=== PATIENT | female | born 1995 | race Hispanic/Latino ===

== ENCOUNTER 2018-07-12 17:24 | Emergency (ER) | payer SELFPAY ==
[2018-07-12 19:37] LABS: Urine Bacteria <20 /HPF (<20); Urine Culture Reflex Order NOT NEEDED; Urine RBC <5 /HPF (NONE SEEN)
--- NOTE | 2018-07-12 19:48 | RAD REPORT ---
EXAM DESCRIPTION: CT - Stone Protocol - 07/12/2018 7:35 pm CLINICAL HISTORY: Abdominal pain. Nausea COMPARISON: 2017 TECHNIQUE: Computed axial tomography of the abdomen pelvis was obtained without oral or IV contrast. Lack of IV and oral contrast limits evaluation of solid organs, bowel, and vessels. Coronal reformat dominguez images were obtained and reviewed. All CT scans are performed using dose optimization technique as appropriate and may include automated exposure control or mA/KV adjustment according to patient size. FINDINGS: A renal calculus is not seen. An ureteral calculus is not noted. A bladder calculus is not present. The liver, spleen, pancreas and adrenals appear grossly normal There is no evidence of diverticulitis. The appendix appears normal Several calcified lymph nodes are present. IMPRESSION: Negative for a genitourinary calculus
[2018-07-12] MEDS ORDERED: KETOROLAC 30 MG/ML INJ ONE (21:00)
[2018-07-12 21:42] LABS: Urine Blood TRACE (NEG); Urine Glucose NEGATIVE (NEG); Urine Protein NEGATIVE (NEG)
--- NOTE | 2018-07-12 21:50 | EDPHYS ---
Physician Documentation [facility] Name: Mago Damico Age: 23 yrs Sex: Female : 1995 Arrival Date: 07/12/2018 Time: 17:29 Bed 23 Private MD: KENISHA FLETCHER ED Physician Will Phoenix HPI: 07/12 19:23 This 23 yrs old Female presents to ER via Ambulatory with complaints of snw Abdominal Pain. 19:23 The patient presents with abdominal pain right lower quadrant. Onset: The snw symptoms/episode began/occurred gradually, 1 week(s) ago, and became persistent. The symptoms do not radiate. Associated signs and symptoms: Pertinent positives: dizziness. The symptoms are described as constant, crampy. Severity of pain: At its worst the pain was moderate severe. The patient has experienced similar episodes in the past. The patient has not recently seen a physician. 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 - Social history:: Smoking status: Patient uses tobacco products, denies chronic smoking, but will smoke occasionally. - Ebola Screening: : No symptoms or risks identified at this time. ROS: 19:22 Constitutional: Negative for fever, chills, and weight loss, Eyes: Negative for injury, snw pain, redness, and discharge, ENT: Negative for injury, pain, and discharge, Neck: Negative for injury, pain, and swelling, Cardiovascular: Negative for chest pain, palpitations, and edema, Respiratory: Negative for shortness of breath, cough, wheezing, and pleuritic chest pain, Back: Negative for injury and pain, : Negative for injury, bleeding, discharge, and swelling, MS/Extremity: Negative for injury and deformity, Skin: Negative for injury, rash, and discoloration, Neuro: Negative for headache, weakness, numbness, tingling, and seizure. 19:22 Abdomen/GI: Positive for abdominal pain, abdominal cramps, of the suprapubic area and right lower quadrant, pain is so severe pt states she becomes dizzy and has to lie in a position with a heating pad. Exam: 19:21 Constitutional: This is a well developed, well nourished patient who is awake, alert, snw and in no acute distress. Head/Face: Normocephalic, atraumatic. Eyes: Pupils equal round and reactive to light, extra-ocular motions intact. Lids and lashes normal. Conjunctiva and sclera are non-icteric and not injected. Cornea within normal limits. Periorbital areas with no swelling, redness, or edema. ENT: Nares patent. No nasal discharge, no septal abnormalities noted. Tympanic membranes are normal and external auditory canals are clear. Oropharynx with no redness, swelling, or masses, exudates, or evidence of obstruction, uvula midline. Mucous membranes moist. Neck: Trachea midline, no thyromegaly or masses palpated, and no cervical lymphadenopathy. Supple, full range of motion without nuchal rigidity, or vertebral point tenderness. No Meningismus. Chest/axilla: Normal chest wall appearance and motion. Nontender with no deformity. No lesions are appreciated. Cardiovascular: Regular rate and rhythm with a normal S1 and S2. No gallops, murmurs, or rubs. Normal PMI, no JVD. No pulse deficits. Respiratory: Lungs have equal breath sounds bilaterally, clear to auscultation and percussion. No rales, rhonchi or wheezes noted. No increased work of breathing, no retractions or nasal flaring. Abdomen/GI: Soft, tender, with normal bowel sounds. No distension or tympany. Minimal guarding no rebound right lower quad. Back: No spinal tenderness. No costovertebral tenderness. Full range of motion. Skin: Warm, dry with normal turgor. Normal color with no rashes, no lesions, and no evidence of cellulitis. MS/ Extremity: Pulses equal, no cyanosis. Neurovascular intact. Full, normal range of motion. Neuro: Awake and alert, GCS 15, oriented to person, place, time, and situation. Cranial nerves II-XII grossly intact. Motor strength 5/5 in all extremities. Sensory grossly intact. Cerebellar exam normal. Normal gait. Psych: Awake, alert, with orientation to person, place and time. Behavior, mood, and affect are within normal limits. Vital Signs: 17:41 BP 117 / 64; Pulse 103; Resp 16 S; Temp 97.7(TE); Pulse Ox 100% on R/A; Weight 63.5 kg aa5 (R); Height 5 ft. 3 in. (160.02 cm) (R); Pain 5/10; 18:48 BP 117 / 64; Pulse 59; Resp 18; Pulse Ox 99% ; tl3 20:58 BP 110 / 72; Pulse 67; Resp 18; Pulse Ox 100% on R/A; tl3 22:18 BP 115 / 76; Pulse 62; Resp 18; Pulse Ox 100% on R/A; tl3 17:41 Body Mass Index 24.80 (63.50 kg, 160.02 cm) aa5 MDM: 18:54 Patient medically screened. snw 21:49 Data reviewed: vital signs, nurses notes. Data interpreted: Pulse oximetry: on room air snw is 100 %. Interpretation: normal. Counseling: I had a detailed discussion with the patient and/or guardian regarding: the historical points, exam findings, and any diagnostic results supporting the discharge/admit diagnosis, lab results, radiology results, the need for outpatient follow up, to return to the emergency department if symptoms worsen or persist or if there are any questions or concerns that arise at home. 07/12 17:54 Order name: Urine Microscopic Only; Complete Time: 20:06 snw 07/12 18:44 Order name: Urine Dipstick--Ancillary (enter results); Complete Time: 21:48 bd 07/12 19:15 Interpretation: Abnormal. snw 07/12 17:54 Order name: Urine Test (obtain specimen); Complete Time: 18:44 snw 07/12 18:44 Order name: Urine --Ancillary (enter results); Complete Time: 21:48 bd 07/12 19:16 Order name: CT Stone Protocol; Complete Time: 20:06 snw 07/12 17:54 Order name: Urine Dipstick-Ancillary (obtain specimen); Complete Time: 18:44 snw Administered Medications: 20:57 Drug: TORadol 60 mg Route: IM; Site: right gluteus; tl3 22:19 Follow up: Response: No adverse reaction tl3 Disposition: 07/12/18 21:49 Discharged to Home. Impression: Lower abdominal pain, unspecified. - Condition is Stable. - Discharge Instructions: Abdominal Pain, Adult. - Prescriptions for Bentyl 20 mg Oral Tablet - take 1 tablet by ORAL route every 6 hours As needed; 20 tablet. Diclofenac Sodium 75 mg Oral Tablet Sustained Release - take 1 tablet by ORAL route 2 times per day; 30 tablet. - Medication Reconciliation Form, Thank You Letter, Antibiotic Education, Prescription Opioid Use form. - Follow up: KENISHA FLETCHER; When: 1 - 2 days; Reason: Recheck today's complaints, Continuance of care, Re-evaluation by your physician. Follow up: Emergency Department; When: As needed; Reason: Worsening of condition. Addendum: 07/15/2018 07:18 Co-signature as Attending Physician, Will Phoenix MD. r n Signatures: Dispatcher [employer] EDMS Katie Patterson, PUNCHER-C PUNCHER-Csnw Will Phoenix MD MD rn Calderon, Audri, RN RN aa5 Pilar Camara, RN RN tl3 Corrections: (The following items were deleted from the chart) 07/12 22:20 21:49 07/12/2018 21:49 Discharged to Home. Impression: Lower abdominal pain, tl3 unspecified. Condition is Stable. Forms are Medication Reconciliation Form, Thank You Letter, Antibiotic Education, Prescription Opioid Use. Follow up: KENISHA FLETCHER; When: 1 - 2 days; Reason: Recheck today's complaints, Continuance of care, Re-evaluation by your physician. Follow up: Emergency Department; When: As needed; Reason: Worsening of condition. snw
--- NOTE | 2018-07-12 21:50 | ER ---
Nurse's Notes [facility] Name: Mago Damico Age: 23 yrs Sex: Female : 1995 Arrival Date: 07/12/2018 Time: 17:29 Bed 23 Private MD: KENISHA FLETCHER Diagnosis: Lower abdominal pain, unspecified Presentation: 07/12 17:38 Presenting complaint: Patient states: cramping to pelvic area that began 1 week ago. Pt aa5 reports nausea and dizziness. Transition of care: patient was not received from another setting of care. Onset of symptoms was July 2018. Risk Assessment: Do you want to hurt yourself or someone else? Patient reports no desire to harm self or others. Initial Sepsis Screen: Does the patient meet any 2 criteria? No. Patient's initial sepsis screen is negative. Does the patient have a suspected source of infection? No. Patient's initial sepsis screen is negative. Care prior to arrival: None. 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 - Social history:: Smoking status: Patient uses tobacco products, denies chronic smoking, but will smoke occasionally. - Ebola Screening: : No symptoms or risks identified at this time. Screenin:48 Abuse screen: Denies threats or abuse. Nutritional screening: No deficits noted. tl3 Tuberculosis screening: No symptoms or risk factors identified. Fall Risk None identified. Assessment: 18:48 General: Appears in no apparent distress. comfortable, slender, well groomed, well tl3 developed, well nourished, Behavior is calm, cooperative, appropriate for age. Pain: Complains of pain in suprapubic area. Neuro: Level of Consciousness is awake, alert, obeys commands, Oriented to person, place, time, situation, Appropriate for age. Cardiovascular: Patient's skin is warm and dry. Respiratory: Airway is patent Respiratory effort is even, unlabored, Respiratory pattern is regular, symmetrical. GI: Abdomen is flat, Bowel sounds Abd is soft and non tender X 4 quads. : Urine is. EENT: No signs and/or symptoms were reported regarding the EENT system. Derm: No signs and/or symptoms reported regarding the dermatologic system. 19:31 Reassessment: Patient appears in no apparent distress at this time. No changes from tl3 previously documented assessment. Patient and/or family updated on plan of care and expected duration. Pain level reassessed. Patient is alert, oriented x 3, equal unlabored respirations, skin warm/dry/pink. pt to CT. 20:58 Reassessment: Patient appears in no apparent distress at this time. No changes from tl3 previously documented assessment. Patient and/or family updated on plan of care and expected duration. Pain level reassessed. Patient is alert, oriented x 3, equal unlabored respirations, skin warm/dry/pink. no needs at this time. 22:18 Reassessment: Patient appears in no apparent distress at this time. No changes from tl3 previously documented assessment. Patient and/or family updated on plan of care and expected duration. Pain level reassessed. Patient is alert, oriented x 3, equal unlabored respirations, skin warm/dry/pink. pt being discharged. Vital Signs: 17:41 BP 117 / 64; Pulse 103; Resp 16 S; Temp 97.7(TE); Pulse Ox 100% on R/A; Weight 63.5 kg aa5 (R); Height 5 ft. 3 in. (160.02 cm) (R); Pain 5/10; 18:48 BP 117 / 64; Pulse 59; Resp 18; Pulse Ox 99% ; tl3 20:58 BP 110 / 72; Pulse 67; Resp 18; Pulse Ox 100% on R/A; tl3 22:18 BP 115 / 76; Pulse 62; Resp 18; Pulse Ox 100% on R/A; tl3 17:41 Body Mass Index 24.80 (63.50 kg, 160.02 cm) aa5 ED Course: 17:29 Patient arrived in ED. mr 17:30 KENISHA FLETCHER is Private Physician. mr 17:38 Arm band placed on. aa5 17:40 Triage completed. aa5 18:36 Katie Patterson [facility]C [facility]. snw 18:36 Will Phoenix MD is Attending Physician. snw 18:40 Urine collected: clean catch specimen, clear, hugo colored, Amount Voided: 120mL. jp3 18:44 Pilar Camara, RN is Primary Nurse. tl3 18:48 Patient has correct armband on for positive identification. Placed in gown. Bed in low tl3 position. Call light in reach. Side rails up X 1. Pulse ox on. NIBP on. Warm blanket given. Pillow given. 18:48 No provider procedures requiring assistance completed. Patient did not have IV access tl3 during this emergency room visit. 19:02 Urine --Ancillary (enter results) Sent. jp3 19:02 Urine Dipstick--Ancillary (enter results) Sent. jp3 19:02 Urine Microscopic Only Sent. jp3 19:[address] vm2 19:33 CT completed. Patient tolerated procedure well. Patient moved back from CT. vm2 19:40 CT Stone Protocol In Process Unspecified. EDMS 21:48 KENISHA FLETCHER is Referral Physician. snw Administered Medications: 20:57 Drug: TORadol 60 mg Route: IM; Site: right gluteus; tl3 22:19 Follow up: Response: No adverse reaction tl3 Outcome: 21:49 Discharge ordered by . snw 22:18 Discharged to home ambulatory. tl3 22:18 Condition: stable 22:18 Discharge instructions given to patient, Instructed on discharge instructions, follow up and referral plans. medication usage, Demonstrated understanding of instructions, follow-up care, medications, Prescriptions given X 2. 22:20 Patient left the ED. tl3 Signatures: Dispatcher [employer] EDPR Katie Patterson, ACTIVITIES SPECIALIST-C ACTIVITIES SPECIALIST-Csnw Gisele RiveraSteff, RN RN aa5 Marley Millan 2 Pilar Camara, RN RN tl3 Jimmy Mac jp3
[2018-07-12 23:40] VITALS: TEMP 97.7
[2018-07-12 23:43] VITALS: O2SAT 100
[2018-07-12 23:44] VITALS: BP 115/76
== END 2018-07-12 22:20 | disposition home or self-care (01) ==
LOC: ER 17:24
DX: R10.31 Right lower quadrant pain (principal); Z72.0 Tobacco use
CPT/HCPCS: 74176; 76377; 81003; 81015; 81025; 96372; 99284

== ENCOUNTER 2020-03-03 17:38 | Emergency (ER) | payer OTHER, SELFPAY ==
--- OUTSIDE RECORDS SUMMARY | 2020-03-03 17:41 | XMS REPORT | Summary of Care ---
:1995 Author Organization [facility] Address [address] [place] [address] Care Team Providers Name Role Phone Juan Suazo Primary Care Provider Doctor Unassigned, Name Insurance Hmo Unavailable Reason for Visit Reason Comments New OB Visit Encounter Details Date Type Department Care Team Description 01/28/2020 Initial [facility] RMP- Femi Suazo upervision of high risk in first trimester (Primary Dx); Visit Neel RLINDA Multiparity; [address] History o f abnormal cervical Pap smear; [address] Atypical squamous cells of undetermined significance (ASCUS) on Papanicolaou smear of cervix; [place], [place] Overweight (BMI 25.0-29.9); [phone] BMI 25.0-25.9,adult [phone] Allergies No Known Allergiesdocumented as of this encounter (statuses as of 01/28/2020) Medications No known medicationsdocumented as of this encounter (statuses as of 01/28/2020) Active Problems Problem Noted Date Supervision of high risk in first trimester 01/28/2020 Three previous miscarriages, affecting care of mother, antepartum, first 01/28/2020 trimester Multiparity 01/28/2020 BMI 25.0-25.9,adult 01/28/2020 History of abnormal cervical Pap smear 01/28/2020 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 Well woman exam 04/20/2019 Contraceptive management 04/12/2017 Atypical squamous cells of undetermined significance ( ASCUS) on 04/12/2017 Papanicolaou smear of cervix Depression, unspecified depression type 04/12/2017 Estimated Date of Delivery Comments Yes 10/03/2020 Based on last menstr ual period of 12/28/2019 (Within Days) documented as of this encounter (statuses as of 01/28/2020) Resolved Problems Problem Noted Date Resolved Date Depo-Provera contraceptive status 04/12/20172018 Cervical high risk human papillomavirus (HPV) DNA test 04/1201/28/2020 positive documented as of this encounter (statuses as of 01/28/2020) Social History Tobacco Use Types Packs/Day Years Used Date Former Smoker Cigarettes 04/20/2015 - 0 10/2019 Smokeless Tobacco: Never Used Comments: smokes 1 x per day Alcohol Use Drinks/Week oz/Week Comments Not Currently socially Alcohol Habits Answer Date Recorded How often do you have a drink containing alcohol? Monthly or less 04/20/2019 How many drinks containing alcohol do you have on a Not aske d 01/28/2020 typical day when you are drinking? How often do you have six or more drinks on one Not asked 01/28/2020 occasion? Estimated Date of Delivery Comments Yes 10/03/2020 Based on last menstr ual period of 12/28/2019 (Within Days) Sex Assigned at Date Recorded Not on file COVID-19 Exposure Response Date Recorded In the last month, have you been in contact with No / Unsure 01/28/2020 9:22 AM CDT someone who was confirmed or suspected to have Coronavirus / COVID-19? 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 Patient's last menstrual period was 12/28/2019 (within days). She is 4w3d with an intrauterine . Her Estimated Date of Delivery: 10/03/20. She is being seen today for her first obstetrical visit. She has no complaints today. OB History Para Term AB Living 5 1 1 3 1 SAB TAB Ectopic Multiple Live Births 3 1 # Outcome Date GA Lbr Hardeep/2nd Weight Sex Delivery Anes PTL Lv 5 Current 4 SAB 05/09/19 3 01/2018 2 2016 1 Term 10/13/15 39w0d 6 lb 1 oz (2.75 kg) M [place] Histories OB History Para Term AB Living 5 1 1 3 1 SAB TAB Ectopic Multiple Live Births 3 1 # Outcome Date GA Lbr Hardeep/2nd Weight Sex Delivery Anes PTL Lv 5 Current 4 05/09/19 3 01/2018 2 2016 1 Term 10/13/15 39w0d 6 lb 1 oz (2.75 kg) M [place] Past Medical History: Diagnosis Date Abnormal glandular Papanicolaou smear of cervix 04/12/2017 Anxiety 06/2016 not on meds, resovled Depression 06/2016 stable on wellbutrin, hx of suicide attempt 06/2016, resolved History of HPV infection 2012, 2016 Family History Problem Relation Age of Onset No Significant Medical Problems Mother No Significant Medical Problems Father No Significant Medical Problems Sister No Significant Medical Problems Brother Arthritis NoFHx Asthma NoFHx defects NoFHx Breast Cancer NoFHx Colon Cancer NoFHx Ovarian Cancer NoFHx Uterine Cancer NoFHx Cancer NoFHx Depression NoFHx Diabetes NoFHx Genetic NoFHx Heart NoFHx High cholesterol NoFHx Hypertension NoFHx Mental retardation NoFHx Neurological NoFHx Osteoporosis NoFHx Psychiatry NoFHx Other - see comments NoFHx Family Status Relation Name Status Mo Alive Fa Alive Sis Alive Bro Alive NoFHx (Not Specified) Past Surgical History: Procedure Laterality Date BUNIONECTOMY 2015 DILATION AND CURETTAGE (SHX) at age 16, TYMPANOPLASTY Left 01/22/2015 Surgeon: Ashlyn Chi; Location: [facility] Social History Socioeconomic History Marital status: Single Spouse name: Not on file Number of children: Not on file Years of education: Not on file Highest education level: Not on file Occupational History Not on file Social Needs Financial resource strain: Not on file Food insecurity Worry: Not on file Inability: Not on file Transportation needs Medical: Not on file Non-medical: Not on file Tobacco Use Smoking status: Former Smoker Types: Cigarettes Start date: 04/20/2015 Quit date: 10/2019 Years since quittin.3 Smokeless tobacco: Never Used Tobacco comment: smokes 1 x per day Substance and Sexual Activity Alcohol use: Not Currently Frequency: Monthly or less Comment: socially Drug use: No Sexual activity: Yes Partners: Male control/protection: None Comment: Last intercourse: 01/15/2020 Lifestyle Physical activity Days per week: Not on file Minutes per session: Not on file Stress: Not on file Relationships Social connections Talks on phone: Not on file Gets together: Not on file Attends mormonism service: Not on file Active member of club or organization: Not on file Attends meetings of clubs or organizations: Not on file Relationship status: Not on file Intimate partner violence Fear of current or ex partner: Not on file Emotionally abused: Not on file Physically abused: Not on file Forced sexual activity: Not on file Other Topics Concern Not on file Social History Narrative Pt denies current or past physical, sexual or emotional abuse. Patient lives alone with son. Jain preference Gnosticist. No inside cats. Social History Substance and Sexual Activity Sexual Activity Yes Partners: Male control/protection: None Comment: Last intercourse: 01/15/2020 Genetic Screen Autism / Mental Retardation: (!) Yes(FOB son has autism) Was person tested for Fragile X?: (unknown) Sabine Disease: No Congenital Heart Defect: No Cystic Fibrosis: No Down Syndrome: No Familial Dysautonomia: No Hemophilia or other Blood Disorders: No [place] Chorea: No Maternal Metabolic Disorder--specify (eg. Type 1 Diabetes, PKU): No Muscular Dystrophy: No Neural Tube Defect: No Recurrent Loss or a Stillbirth: No Sickle Cell Disease or Trait: No Harrison Sachs: No Teratological Substances (specify type & strength/dose) since LMP: No Thalassemia: No Other Inherited Genetic or Chromosomal Disorder (specify): No Labs Labs are pending. Radiology No new radiology. Allergies Mago has No Known Allergies. Medications Mago currently has no medications in their medication list. Review of Systems Constitutional: Negative for activity change, appetite change, fatigue, unexpected weight change, weight gain and weight loss. HENT: Negative for sore throat. Eyes: Negative for visual disturbance. Respiratory: Negative for cough and shortness of breath. Breasts: Negative for discharge, mass, pain and unequal size. Cardiovascular: Negative for chest pain, palpitations and leg swelling. Gastrointestinal: Negative. Negative for abdominal pain, anal bleeding, blood in stool, constipation, diarrhea, nausea, rectal pain and vomiting. Genitourinary: Negative for bladder incontinence, dysuria, urgency, flank pain, vaginal bleeding, vaginal discharge, genital sores, vaginal pain and pelvic pain. Skin: Negative for color change and rash. Neurological: Negative. Negative for dizziness, syncope and headaches. Psychiatric/Behavioral: Negative for confusion, self-injury and sleep disturbance. The patient is not nervous/anxious. Hematological: Negative for cold intolerance and heat intolerance. Endocrine: Negative for hair loss, cold intolerance, heat intolerance, weight gain and weight loss. BP 117/67 (BP Location: Right arm, Patient Position: Sitting, BP CUFF SIZE: Adult Medium) | Pulse 66 | Temp 37.3 C (99.2 F) (Oral) | Resp 16 | Ht 5' 4" (1.626 m) | Wt 151 lb 6.4 oz (68.7 kg) | LMP 12/28/2019 (Within Days) | BMI 25.99 kg/m Pregravid BMI: 24.88 Physical Exam Vitals reviewed. Constitutional: She is oriented to person, place, and time. She appears well- developed, well-nourished and well-groomed. She has no deformities. Neck: No tenderness and no mass. No thyroid nodules and no thyromegaly palpated. Cardiovascular: Regular rate and rhythm. No murmur auscultated. Pulmonary/Chest: Breath sounds clear to auscultation. Normal inspiratory effort. Abdominal: Abdomen is soft. No mass palpated. No tenderness present. There is no guarding. Neuro/Psychiatric: She has a normal mood and affect. She is oriented to person, place, and time. Skin: Skin normal. No lesion and no rash present. Tattoo present on red body markings Breast: Right breast exhibits no mass, no nipple discharge and no tenderness. Left breast exhibits no mass, no nipple discharge and no tenderness. Normal left breast and normal right breast Rectal: normal rectum External genitalia: Normal external genitalia appropriate for age. Normal hair distribution. No labial lesion. Skidder Runner present for the exam: Zehra Flynn RN Vagina:Normal vagina. No lesion inspected. No abnormal vaginal discharge found. No lesions in thevagina. Cervix: Normal cervix. No lesion. No tenderness and no discharge present. Uterus: Uterus is normal size and non-tender. Normal uterus Adnexa: Right adnexa without tenderness or mass. Left adnexa without tenderness or mass. Normal leftadnexa and normal right adnexa Anus/perineum: Normal perineum. PHYSICAL: General Exam: HEENT: Normal Thyroid: Normal Lymph Node: Normal Neurological: Normal Abdomen: Normal Skin: Normal Extremities: Normal Pelvic Exam: Vulva: Normal Vagina: Normal Skidder Runner present for the exam: Zehra Flynn RN Cervix: Normal Uterus: 6cm Weeks Adnexa: Normal Spines: Average Sacrum: Concave Subpubic Arch: Normal Assessment/Plan Supervision of high risk in first trimester (primary encounter diagnosis) Multiparity Comment: Routine NOB Plan: POCT TEST, POCT URINALYSIS W/O SPECIFIC GRAVITY, CBC WITH DIFF, GC & CHLAMYDIA AMPLIFIED ASSAY, HEPATITIS B SURFACE ANTIGEN, HIV 1/2 AG-AB WITH REFLEX, POCT URINALYSIS W SPECIFIC GRAVITY, WORKUP, BLOOD BANK, RUBELLA SCREEN (MALENA) IGG, GALV ONLY - SYPHILIS IGG/IGM, URINE CULTURE, VZV ANTIBODY SCREEN, WORKUP, BLOOD BANK, CBC WITH DIFF, GC & CHLAMYDIA AMPLIFIED ASSAY, HEPATITIS B SURFACE ANTIGEN, HIV 1/2 AG-AB WITH REFLEX, RUBELLA SCREEN (MALENA) IGG, GALV ONLY - SYPHILIS IGG/IGM, URINE CULTURE, VZV ANTIBODY SCREEN Denies zika virus risk, signs and symptoms such as fever,rash,joint pain, conjunctivitis (red eyes), muscle pain, headaches; outside [place] travel to areas affected by zika, and FOB exposure to zika. Educated on use of mosquito repellent. Covid x12 screening done, screening results are negative. History of abnormal cervical Pap smear Atypical squamous cells of undetermined significance (ASCUS) on Papanicolaou smear of cervix Comment:LGSIL (2018)->ASCUC (2019)-> 04/2020 repeat pap smear Plan: Repeat pap smear in 06/2019, [place] of care discussed with Dr. Boston Overweight (BMI 25.0-29.9) BMI 25.0-25.9,adult Comment: BMI: BMI: 25.99 Plan: Patient encouraged to limit weight gain and advised to eat healthy diet, fruits, vegetables, increased fiber and water intake and protein low in fat. Encouraged exercise for 30 min everyday; begin regimen with caution to prevent injury. Encouraged to decrease BMI to <25. Return to clinic in 4 weeks. Discussed treatment options. Medications as ordered. Reviewed patient instructions and provided printed copy. This visit did not involve counseling and coordination that comprised more than 50% of the visit time. LINDA Silva 01/28/2020 10:18 AM Zehra Flynn RN - 01/28/2020 9:00 AM CDTPatient is 24 year old female here for current . Patient is . 1) Previous delivery methods Vaginal delivery 2) Patient is not experiencing cramping 3) Patient is not experiencing bleeding. 4) LMP: 12/28/2019 5) Last Pap was: 04/20/2019 Results: ASCUS 6) Have you had a flu vaccine this season? no 7) PPD candidate? no 8) Patient complains of none 9) Patient denies history of physical, emotional, or sexual abuse. Patient states she currently feels safe at home. NOB packet given and reviewed with patient. documented in this encounter Plan of Treatment Name Type Priority Associated Diagnoses Date/Ti me GC & CHLAMYDIA LAB Routine Supervision of high risk 0 01/28/2020 9:58 AM CDT AMPLIFIED ASSAY in first trimester URINE CULTURE LAB Routine Supervision of high risk 9:58 AM CDT in first trimester Name Type Priority Associated Diagnoses Order S chedule CBC WITH DIFF LAB Routine Supervision of high risk Ex pected: 01/28/2020, in first Expires: 01/27/2021 trimester GC & CHLAMYDIA LAB Routine Supervision of high risk E xpected: 01/28/2020, AMPLIFIED ASSAY in first s: 01/27/2021 trimester HEPATITIS B SURFACE LAB Routine Supervision of high r isk Expected: 01/28/2020, ANTIGEN in first Expires: 01/27/2021 trimester HIV 1/2 AG-AB WITH LAB Routine Supervision of high ri sk Expected: 01/28/2020, REFLEX in first Expires: 01/27/2021 trimester POCT URINALYSIS W LAB Routine Supervision of high ris k 20 Occurrences starting SPECIFIC GRAVITY in first 01/27 until trimester 11/23/2020 WORKUP, BLOOD LAB Routine Supervision of hig h risk Expected: 01/28/2020, BANK in first Expires: 01/27/2021 trimester RUBELLA SCREEN (MALENA) LAB Routine Supervision of hig h risk Expected: 01/28/2020, IGG in first Expires: 01/27/2021 trimester GALV ONLY - SYPHILIS LAB Routine Supervision of high risk Expected: 01/28/2020, IGG/IGM in first Expires: 01/27/2021 trimester URINE CULTURE LAB Routine Supervision of high risk Ex pected: 01/28/2020, in first Expires: 01/27/2021 trimester VZV ANTIBODY SCREEN LAB Routine Supervision of high r isk Expected: 01/28/2020, in first Expires: 01/27/2021 trimester Health Maintenance Due Date Last Done Comments INFLUENZA VACCINE (#1) 2020 CHLAMYDIA SCREENING 04/20/2020 04/20/2019, 04/20/2019 DTaP,Tdap,and Td Vaccines (1 04/20/2020 Pos tponed from - Tdap) 2015 ([place] Guidelines) PNEUMOCOCCAL 0-64 YEARS 04/20/2020 Postpone d from COMBINED SERIES (1 of - 2001 (Insurance / PPSV23) Financial) Depression Screening 05/18/2020 05/18/2019 PAP SMEAR 04/20/2022 04/20/2019, 06/21/2017 HPV VACCINES Discontinued MENINGOCOCCAL B VACCINES Discontinued VARICELLA VACCINES Discontinued documented as of this encounter Procedures Procedure Name Priority Date/Time Associated Diagnosis Comme nts POCT URINALYSIS W/O Routine 01/28/2020 Supervision of high R esults for this SPECIFIC GRAVITY risk in first procedure are in the trimester results section . POCT TEST Routine 01/28/2020 Supervision of high R esults for this risk in first proc edure are in the trimester results section . documented in this encounter Results POCT URINALYSIS W/O SPECIFIC GRAVITY (01/28/2020) Pathologist Sig nature POCT PH U 6 5 - 8 mg/dl POCT U LEUK EST trace Negative - Negative POCT U NIT neg Negative - Negative POCT U PROT trace Negative - Negative POCT U GLU normal \\ Negative - Negative POCT U KETONE neg Negative - Negative POCT U BLD neg Negative - Negative Specimen Urine - URINE, CLEAN CATCH POCT TEST (01/28/2020) Pathologist Sig nature POCT PREG Positive On board controls acceptable Yes with C Line POCT PREG LOT # POCT PREG TEST DATE Specimen Urine - URINE, CLEAN CATCH documented in this encounter Visit Diagnoses Diagnosis Supervision of high risk in fi rst trimester - Primary Unspecified high-risk Multiparity History of abnormal cervical Pap smear Personal history of other genital system and obstetric disorders Atypical squamous cells of undetermined significance (ASCUS) on Papanicolaou smear of cervix Overweight (BMI 25.0-29.9) Overweight BMI 25.0-25.9,adult Body Mass Index 25.0-25.9, adult documented in this encounter Insurance Payer Benefit Plan / Subscriber ID Effective Phone Address T ype Group Dates MEDICAID MEDICAID PENDING [id number] Pending [place] [phone] 1 documented as of this encounter Advance Directives Name Relationship Healthcare Agent Communication Relationship Gina Damico Mother Health Care Agent [email or web address]
--- OUTSIDE RECORDS SUMMARY | 2020-03-03 17:41 | XMS REPORT | Continuity of Care Document ---
:1995 Author Organization [facility] t Address [address] [place] [address] Care Team Providers Name Role Phone Brad Izaguirre MD Attending Clinician Problems This patient has no known problems. Allergies, Adverse Reactions, Alerts This patient has no known allergies or adverse reactions. Medications This patient has no known medications. Procedures This patient has no known procedures. Encounters Start End Encounter Admission Attending Care Care Encounter Source Date/Time Date/Time Type Type Clinicians Facility Department ID 2020-02-27 2020-02-28 Initial Michelle Izaguirer [id number] 10:13:22 09:32:02 Brad Shaikh [id number] Visit [place] [id number] Blake [phone] [facility] [address] Results This patient has no known results.
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
--- OUTSIDE RECORDS SUMMARY | 2020-03-03 17:42 | XMS REPORT | Summary of Care ---
:1995 Author Organization [facility] Address [address] [place] [address] Care Team Providers Name Role Phone Juan Suazo TRAIN ANNOUNCER Primary Care Provider Doctor Unassigned, Name Insurance Hmo Unavailable Encounter Details Date Type Department Care Team Description 01/28/2020 Letter (Out[facility], [facility] [address] [place] [address] [place] [address] Allergies No Known Allergiesdocumented as of this [...] of this encounter Last Filed Vital Signs Not on filedocumented in this encounter Plan of Treatment Date Type Specialty Care Team Description 02/25/2020 Routine Visit OB Satellites Juan Suazo, TRAIN ANNOUNCER [address] [address] [phone] Health Maintenance Due Date Last Done Comments INFLUENZA VACCINE (#1) 2020 CHLAMYDIA SCREENING 04/20/2020 04/20/2019, 04/20/2019 DTaP,Tdap,and Td Vaccines (1 04/20/2020 Pos tponed from - Tdap) 2015 (Alte [place] Guidelines) PNEUMOCOCCAL 0-64 YEARS 04/20/2020 Postpone d from COMBINED SERIES (1 of 1 - 2001 (Insurance / PPSV23) Financial) Depression Screening 05/18/2020 05/18/2019 PAP SMEAR 04/20/2022 04/20/2019, 06/21/2017 HPV VACCINES Discontinued MENINGOCOCCAL B VACCINES Discontinued VARICELLA VACCINES Discontinued documented as of this encounter Results Not on filedocumented in this encounter Insurance Payer Benefit Plan Subscriber ID Effective Phone Address Typ e / Group Dates MEDICAID MEDICAID PENDING 2020-Pre [address] P ending PENDING [place] [address] [facility] [id number] 2019-Pre [phone] [id number] Medicaid WOMEN sent [address] [place] [address] documented as of this encounter Advance Directives Name Relationship Healthcare Agent Communication Relationship Gina Damico Mother Health Care Agent [email or web address]
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
--- OUTSIDE RECORDS SUMMARY | 2020-03-03 17:43 | XMS REPORT | Summary of Care ---
:1995 Author Organization [facility] Address [address] [place] [address] Care Team Providers Name Role Phone Juan Suazo NAIL MACHINE OPERATOR Primary Care Provider Doctor Unassigned, Name Insurance Hmo Unavailable Reason for Visit Reason Comments Abnormal Lab COVID IGG Encounter Details Date Type Department Care Team Description 01/29/[address] [facility]- Femi Suazo, Ab normal Lab [facility]GG) [address] [facility] [address] [place] [address] [place], [place] [phone] [address] [phone] Allergies No Known Allergiesdocumented as of this encounter (statuses as of 01/29/2020) Medications No known medicationsdocumented as of this encounter (statuses as of 01/29/2020) Active Problems Problem Noted Date Supervision of [...] as of this encounter (statuses as of 01/29/2020) Resolved Problems Problem Noted Date Resolved Date Depo-Provera contraceptive status 04/12/20172018 Cervical high risk human papillomavirus (HPV) DNA test 04/1201/28/2020 positive documented as of this encounter (statuses as of 01/29/2020) Social History Tobacco Use Types Packs/Day Years [...] Signs Not on filedocumented in this encounter Miscellaneous Notes Telephone Encounter - Femi Suazo FNP - 01/29/2020 7:46 AM CDTPlease call patient and notify patient on COVID Antibody test was positive. Patient should be scheduled at one of the locations [facility] and [place] [facility]ording to the [facility] for the COVID PCR test. Please ask PSS members to input "Needs PCR only", orders are placed in patient's chart. documented in this encounter Plan of Treatment Date Type Specialty Care Team Description 02/25/2020 Routine Visit OB Satellites Juan Suazo FNP [address] [place], [place] [address] [phone] Name Type Priority Associated Diagnoses Order S chedule COVID-19 (PCR MOLECULAR LAB Routine Exposure to Covid -19 Expected: 01/29/2020, TESTING) Virus Expires: 2020 Health Maintenance Due Date Last Done Comments INFLUENZA VACCINE (#1) 2020 CHLAMYDIA SCREENING 04/20/2020 04/20/2019, 04/20/2019 DTaP,Tdap,and Td Vaccines (1 04/20/2020 Pos tponed from - Tdap) 2015 (Alte [place]native Guidelines) Depression Screening 05/18/2020 05/18/2019 PAP SMEAR 04/20/2022 04/20/2019, 06/21/2017 HPV VACCINES Discontinued MENINGOCOCCAL B VACCINES Discontinued PNEUMOCOCCAL 0-64 YEARS Aged Out No longe r eligible based COMBINED SERIES on patient's age to complete this to pic VARICELLA VACCINES Discontinued documented as of this encounter Results Not on filedocumented in this encounter Visit Diagnoses Diagnosis Exposure to Covid-19 Virus - Primary documented in this encounter Insurance Payer Benefit Plan Subscriber ID Effective Phone Address Typ e / Group Dates MEDICAID MEDICAID PENDING 2020-Pre [address] P ending [place] [address] [facility] [id number] 2019-Pre [phone] [id number] Medicaid WOMEN sent [address] [place] [address] documented as of this encounter Advance Directives Name Relationship Healthcare Agent Communication Relationship Gina Damico Mother Health Care Agent [email or web address]
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
--- OUTSIDE RECORDS SUMMARY | 2020-03-03 17:43 | XMS REPORT | Summary of Care ---
:1995 Author Organization [facility] Address [address] [place] [address] Care Team Providers Name Role Phone Juan Suazo LINDA Primary Care Provider Doctor Unassigned, Name Insurance Hmo Unavailable Reason for Visit Reason Onset Date Comments 01/28/2020 Encounter Details Date Type Department Care Team Description 01/28/2020 Nurse Triage [facility] Alia Jang RN [address] [phone] [place] [address] Allergies No Known Allergiesdocumented as of this [...] this encounter Miscellaneous Notes Telephone Encounter - Alia Jang, YESSI - [facility]28[facility]2020 [facility] Mago Damico is a 24 year old female Call back to patient with continuous towel roller, Gary # [id number]. Pt states she speaks Sinhala. Per patient, " feeling hot". Advised that feeling hot during can be a normal symptom, but if she starts feeling worse, her temperature increases or has other symptoms, to call the AC back to speak with a nurse and to make an appointment for COVID testing. Pt denies any known COVID contacts, but does work outside of the home. Triage Assessment Last Clinic Visit: today for visit Primary Symptom: "feeling hot" Onset / Duration: patient went to her OV today then took a nap for 1.5 hours, wike up and felt hot Location / Description: patient states she took a nap and when she woke up she felt warm, took her temperature three times and was 98.7 orally, tympanic and temporal Pain / Severity: body aches 2/10, but then described this as more like fatigue Associated Symptoms: fatigue, had a headache which went away, slight sore throat Fever / Method: 98.7 tympanic, orally and temporal Hydration: 16.9 oz x 2-3 bottles of water, urinated X 3 Treatment so far: none Effect on ADL's: no change Gestational Weeks: 4 w 3 d Rupture Membranes: N/A Bleeding / Spotting / Pads per hour: denies Movement: N/A Para / : EDC: 10/03/20 Pre-existing condition / Immunocompromised: multiple SAB, anxiety, depression Alia Jang RN, BSN [facility] Triage Nurse elephone Encounter - Alia Jang RN - 01/28/2020 8:07 PM CDTRegardin wks - no fever, but feels warm x 2-3 hrs ----- Message from Oliva Eubanks sent at 01/28/2020 8:02 PM CDT ----- Mago Damico is a 24 year old female documented in this encounter Plan of Treatment Date Type Specialty Care Team Description 02/25/2020 Routine Visit OB Satellites Juan Suazo, OCCUPATIONAL PHYSICIAN [address] [place] [address] [phone] Health Maintenance Due Date Last Done Comments [...] [address] [place] [address] [facility] HTW-RMCHP [id number] 2019-Pre [phone] [id number] Medicaid WOMEN sent [address] [place] [address] documented as of this encounter Advance Directives Name Relationship Healthcare Agent Communication Relationship Gina Damico Mother Health Care Agent [email or web address]
--- OUTSIDE RECORDS SUMMARY | 2020-03-03 17:43 | XMS REPORT | Summary of Care ---
:1995 Author Organization [facility] Address [address] [place] [address] Care Team Providers Name Role Phone Juan Suazo PROMOTIONS EXECUTIVE PRODUCER Primary Care Provider Doctor Unassigned, Name Insurance Hmo Unavailable Reason for Visit Reason Comments Assessment Rx Concern/Question Encounter Details Date Type Department Care Team Description 01/29/2020 Telephone [facility] Lela Sheikh, Ass essment; [place] [facility] [place] [place] Concern/Question [address] [facility] [address] [phone] Allergies No Known Allergiesdocumented as of this [...] this encounter Miscellaneous Notes Telephone Encounter - Karine Edwards LVN - 01/29/2020 8:43 AM CDTMgisselle Gina Damico is a 24 year old female Referred patient to safe medication list for sore throat. Advised to stay hydrated and to treat symptoms, ER warnings given, verbalized understanding. Telephone Encounter - Cristin Spencer - 01/29/2020 8:41 AM CDTPatient is concerned that she has a sore throat and body ache/muscle weakness. Patient is positive for Covid-19 and wanting to know what she can take to help. Please call patient at [phone] (home) elephone Encounter - Beverley Koenig - 01/29/2020 8:26 AM Ag Gina Damico is a 24 year old female is requesting a callback from the nurse. Patient states tested positive for Covid and wanting to know what she can take. Patient saying throat hurting andweakness but no fever. Please call. Thank you. documented in this encounter Plan of Treatment Date Type Specialty Care Team Description 02/25/2020 Routine Visit OB Satellites Juan Suazo R, PROMOTIONS EXECUTIVE PRODUCER [address] [place], [place] [address] [phone] Health Maintenance Due Date Last Done Comments [...] [address] ending [place] [address] [facility] [id number] 2019-Pre [phone] [id number] Medicaid WOMEN sent [address] [place] [address] documented as of this encounter Advance Directives Name Relationship Healthcare Agent Communication Relationship Gina Damico Mother Health Care Agent [email or web address]
--- OUTSIDE RECORDS SUMMARY | 2020-03-03 17:43 | XMS REPORT | Summary of Care ---
:1995 Author Organization [facility] Address [address] [place] [address] Care Team Providers Name Role Phone Juan Suazo LINDA Primary Care Provider Doctor Unassigned, Name Insurance Hmo Unavailable Reason for Visit Reason Onset Date Comments Assessment 02/23/2020 no contact Encounter Details Date Type Department Care Team Description 02/23/2020 Nurse Triage [facility] Palmer Oconnor, Assessment (no contact) [address] [place] [address] [place] [phone] Allergies No Known Allergiesdocumented as of this encounter (statuses as of 02/23/2020) Medications No known medicationsdocumented as of this encounter (statuses as of 02/23/2020) Active Problems Problem Noted Date Supervision of [...] as of this encounter (statuses as of 02/23/2020) Resolved Problems Problem Noted Date Resolved Date Depo-Provera contraceptive status 04/12/20172018 Cervical high risk human papillomavirus (HPV) DNA test 04/1201/28/2020 positive documented as of this encounter (statuses as of 02/23/2020) Social History Tobacco Use Types Packs/Day Years [...] this encounter Miscellaneous Notes Telephone Encounter - Palmer Oconnor RN - 02/23/2020 2:37 PM CDT Reason for Disposition Second attempt to contact family AND no contact made. Answering service notified. Protocols used: NO CONTACT OR DUPLICATE CONTACT [id number] elephone Encounter - Palmer Oconnor RN - 02/23/2020 2:37 PM CDTRegarding: c/o:of nausea vomiting not able to keep anything down and feeling of about to pass out ----- Message from Ciara Card sent at 02/23/2020 2:15 PM CDT ----- Mago Damico is a 24 year old female Patient is 8 wks experiencing symptoms documented in this encounter Plan of Treatment Date Type Specialty Care Team Description 02/25/2020 Routine Visit OB Satellites Juan Suazo, PROFILE TRIMMER [address] [place], [place] [address] [phone] Health Maintenance Due Date Last Done Comments INFLUENZA VACCINE (#1) 2020 DTaP,Tdap,and Td Vaccines (1 04/20/2020 Pos tponed from - Tdap) 2015 (Alte rnative Guidelines) Depression Screening 05/18/2020 05/18/2019 CHLAMYDIA SCREENING 01/27/2021 01/28/2020, 04/20/2019, 04/20/2019 PAP SMEAR 04/20/2022 04/20/2019, 06/21/2017 HPV VACCINES Discontinued MENINGOCOCCAL B VACCINES Discontinued PNEUMOCOCCAL 0-64 YEARS Aged Out No longe r eligible based COMBINED SERIES on patient's age to complete this to pic VARICELLA VACCINES Discontinued documented as of this encounter Results Not on filedocumented in this encounter Insurance Payer Benefit Plan / Subscriber ID Effective Dates Phone Addre ss Type Group [facility] MEDICAID OF [id number] 2020-[facility] [phone] [address] Medicaid [place] t [id number] [place] [address] documented as of this encounter Advance Directives Name Relationship Healthcare Agent Communication Relationship Gina Damico Mother Health Care Agent [email or web address]
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
--- OUTSIDE RECORDS SUMMARY | 2020-03-03 17:43 | XMS REPORT | Summary of Care ---
:1995 Author Organization [facility] Address [address] [place] [address] Care Team Providers Name Role Phone Juan Suazo [employer] JUDGE Primary Care Provider Doctor Unassigned, Name Insurance Hmo Unavailable Reason for Visit Reason Comments Abnormal Lab COVID IGG Encounter Details Date Type Department Care Team Description 01/29/[address] [facility]- Femi Suazo, Ab normal Lab ([facility] IGG) [address] [facility] [address] [place] [address] [place], [place] [phone] [address] [phone] Allergies No Known Allergiesdocumented as of this [...] this encounter Miscellaneous Notes Telephone Encounter - Constantine Olmos RN - 01/29/2020 9:07 AM CDTCalled patient, advised covid igg positive, patient to have PCR only lab done. Patient states she issymptomatic today with body aches, chills, and low grade temp of 99.5. advised patient to treat symptoms and pss will call her to schedule pcr only. Strict er warnings given. Patient verbalized understanding. CONSTANTINE OLMOS RN 01/29/2020 9:09 AM Telephone Encounter - Femi Suazo FNP - 01/29/2020 7:46 AM CDTPlease call patient and notify patient on COVID Antibody test was positive. Patient should be scheduled at one of the locations [facility] and [place] occording to the the [facility] recommendations for the COVID PCR test. Please ask PSS members to input "Needs PCR only", orders are placed in patient's chart. documented in this encounter Plan of Treatment Date Type Specialty Care Team Description 02/25/2020 Routine Visit OB Satellites Juan Suazo FNP [address] [place], [place] [address] [phone] Name Type Priority Associated Diagnoses Order S [...] [address] ending [place] [address] [facility] [email or web address] 2019-Pre [phone] [id number] Medicaid WOMEN sent [address] [place] [address] documented as of this encounter Advance Directives Name Relationship Healthcare Agent Communication Relationship Gina Damico Mother Health Care Agent [email or web address]
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
[2020-03-03 18:21] LABS: Urine Blood NEGATIVE (NEG); Urine Glucose NEGATIVE (NEG); Urine Protein NEGATIVE (NEG); Urine Specific Gravity 1.025 (1.005-1.030); Urine pH 7.5 (5.0-7.0)
[2020-03-03] MEDS ORDERED: Ringers Lactate 1,000 ML IV ONE (18:23)
[2020-03-03 18:31] LABS: Absolute Lymphocytes (CBC) 3.1 K/uL (0.7-4.9); BUN Blood Urea Nitrogen 5 mg/dL (7-18); Basophils % 0.5 % (0-1.3); Bicarbonate 21 mmol/L (21-32); Glucose Level 93 mg/dL (74-106); Hematocrit 38.3 % (36.0-45.0); Lymphocytes % 28.3 % (15.3-44.8); MPV 7.9 fL (7.6-11.3); Potassium 3.5 mmol/L (3.5-5.1); RBC Red Blood Cell Count 4.35 M/uL (3.86-4.86); Sodium Level 139 mmol/L (136-145)
--- NOTE | 2020-03-03 19:35 | EDPHYS ---
Physician Documentation [facility] Name: Mago Damico Age: 24 yrs Sex: Female : 1995 Arrival Date: 03/03/2020 Time: 17:41 Bed 5 Private MD: ED Physician Shaggy Jernigan HPI: 03/03 18:38 This 24 yrs old Female presents to ER via Ambulatory with complaints of Passed jr8 Out Prior To Arrival - 9 wks preg. 18:38 The patient has experienced syncope, collapsed. Onset: The symptoms/episode jr8 began/occurred acutely, today. Duration: This was a single episode, that lasted 5 second(s). Context: the episode(s) was witnessed, by family, occurred at a restaurant. Associated injury: The patient did not suffer any apparent associated injury. Associated signs and symptoms: The patient has no apparent associated signs or symptoms. Current symptoms: Currently, the patient is not experiencing any symptoms, the patient feels back to baseline, no decreased level of consciousness, no confusion, no dysphasia, no headache, no paralysis, no visual changes. The patient has not experienced similar symptoms in the past. The patient has not recently seen a physician. Patient stated that she is 9 weeks . Was out to eat. Has been vomiting daily for the past week or two. Started to become dizzy while standing up and then passed out. Woke up immediately. Has since felt ok but still lightheaded . 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 - Social history:: Smoking status: Patient denies any tobacco usage or history of. ROS: 18:38 Eyes: Negative for injury, pain, redness, and discharge, ENT: Negative for injury, jr8 pain, and discharge, Neck: Negative for injury, pain, and swelling, Cardiovascular: Negative for chest pain, palpitations, and edema, Respiratory: Negative for shortness of breath, cough, wheezing, and pleuritic chest pain, Abdomen/GI: Negative for abdominal pain, nausea, vomiting, diarrhea, and constipation, Back: Negative for injury and pain, MS/Extremity: Negative for injury and deformity, Skin: Negative for injury, rash, and discoloration. 18:38 Neuro: Positive for dizziness, syncope. Exam: 18:38 Eyes: Pupils equal round and reactive to light, extra-ocular motions intact. Lids and jr8 lashes normal. Conjunctiva and sclera are non-icteric and not injected. Cornea within normal limits. Periorbital areas with no swelling, redness, or edema. ENT: Nares patent. No nasal discharge, no septal abnormalities noted. Tympanic membranes are normal and external auditory canals are clear. Oropharynx with no redness, swelling, or masses, exudates, or evidence of obstruction, uvula midline. Mucous membranes moist. Neck: Trachea midline, no thyromegaly or masses palpated, and no cervical lymphadenopathy. Supple, full range of motion without nuchal rigidity, or vertebral point tenderness. No Meningismus. Cardiovascular: Regular rate and rhythm with a normal S1 and S2. No gallops, murmurs, or rubs. Normal PMI, no JVD. No pulse deficits. Respiratory: Lungs have equal breath sounds bilaterally, clear to auscultation and percussion. No rales, rhonchi or wheezes noted. No increased work of breathing, no retractions or nasal flaring. Abdomen/GI: Soft, non-tender, with normal bowel sounds. No distension or tympany. No guarding or rebound. No evidence of tenderness throughout. Back: No spinal tenderness. No costovertebral tenderness. Full range of motion. Skin: Warm, dry with normal turgor. Normal color with no rashes, no lesions, and no evidence of cellulitis. MS/ Extremity: Pulses equal, no cyanosis. Neurovascular intact. Full, normal range of motion. Neuro: Awake and alert, GCS 15, oriented to person, place, time, and situation. Cranial nerves II-XII grossly intact. Motor strength 5/5 in all extremities. Sensory grossly intact. Cerebellar exam normal. Normal gait. 19:39 ECG was reviewed by the Attending Physician. [facility] Vital Signs: 17:48 BP 99 / 51; Pulse 86; Resp 14; Temp 98.1(TE); Pulse Ox 100% on R/A; Weight 67.59 kg; ss Height 5 ft. 3 in. (160.02 cm); Pain 5/10; 18:10 BP 96 / 50 LA Supine (auto/reg); Pulse 71; sv 18:12 BP 102 / 50 LA Sitting (auto/reg); Pulse 80; sv 18:14 BP 91 / 55 LA Standing (auto/reg); Pulse 107; sv 19:15 BP 104 / 55; Pulse 79; Resp 18; Pulse Ox 100% on R/A; Pain 0/10; mg2 17:48 Body Mass Index 26.39 (67.59 kg, 160.02 cm) ss MDM: 17:43 Patient medically screened. 8 19:33 Data reviewed: vital signs, nurses notes, lab test result(s), EKG, and as a result, I jr8 will discharge patient. Data interpreted: Pulse oximetry: on room air is 100 %. Interpretation: normal. Counseling: I had a detailed discussion with the patient and/or guardian regarding: the historical points, exam findings, and any diagnostic results supporting the discharge/admit diagnosis, lab results, the need for outpatient follow up, an OB/Gyne specialist, to return to the emergency department if symptoms worsen or persist or if there are any questions or concerns that arise at home. Response to treatment: the patient's symptoms have markedly improved after treatment, patient is well hydrated. 03/03 17:53 Order name: Basic Metabolic Panel; Complete Time: 18:33 [facility] 03/03 17:53 Order name: CBC with Diff; Complete Time: 18:47 [facility] 03/03 18:09 Order name: Urine Dipstick--Ancillary (enter results); Complete Time: 18:23 03/03 18:09 Order name: Urine --Ancillary (enter results); Complete Time: 18:23 03/03 18:45 Order name: EKG; Complete Time: 18:46 sv 03/03 17:53 Order name: Urine Test (obtain specimen); Complete Time: 18:22 [facility] 03/03 17:53 Order name: IV Saline Lock; Complete Time: 18:22 [facility] 03/03 17:53 Order name: Labs collected and sent; Complete Time: 18:22 [facility] 03/03 17:53 Order name: NPO; Complete Time: 18:22 [facility] 28 17:53 Order name: Urine Dipstick-Ancillary (obtain specimen); Complete Time: 18:03/03 17:53 Order name: Orthostatics; Complete Time: :03/03 18:37 Order name: EKG - Nurse/Tech; Complete Time: 19:14 EC:39 Rate is 79 beats/min. Rhythm is regular, Normal Sinus Rhythm. QRS [place] is Normal. [place] jr8 interval is normal at 146 msec. QRS interval is normal at 82 msec. QT interval is normal at 400 msec. No Q waves. T waves are Inverted in lead V1. No ST changes noted. Clinical impression: Normal ECG. Interpreted by me. Reviewed by me. Administered Medications: 18:21 Drug: Ringers - Lactated Ringers Solution 1000 ml Route: IV; Rate: bolus; Site: right sv antecubital; 19:14 Follow up: Response: No adverse reaction; IV Status: Completed infusion; IV Intake: mg2 1000ml Disposition: 03/04 13:56 Co-signature as Attending Physician, Shaggy Jernigan MD I agree with the assessment and carlos plan of care. Disposition: 03/03/20 19:34 Discharged to Home. Impression: Dehydration, Orthostatic hypotension, Syncope and collapse. - Condition is Stable. - Discharge Instructions: Orthostatic Hypotension, Syncope. - Medication Reconciliation Form, Thank You Letter, Antibiotic Education, Prescription Opioid Use form. - Follow up: Private Physician; When: 2 - 3 days; Reason: Recheck today's complaints, Continuance of care, Re-evaluation by your physician. - Problem is new. - Symptoms have improved. Signatures: Dispatcher [employer] Marianela Chavez RN RN sv Anderson, Corey, MD MD cha Smirch, Shelby, RN RN ss Roszak, Josh, PA PA jr8 Elias Amador RN RN mg2 Corrections: (The following items were deleted from the chart) 03/03 19:47 19:34 03/03/2020 19:34 Discharged to Home. Impression: Dehydration; Orthostatic mg2 hypotension; Syncope and collapse. Condition is Stable. Forms are Medication Reconciliation Form, Thank You Letter, Antibiotic Education, Prescription Opioid Use. Follow up: Private Physician; When: 2 - 3 days; Reason: Recheck today's complaints, Continuance of care, Re-evaluation by your physician. Problem is new. Symptoms have improved. jr8
--- NOTE | 2020-03-03 19:35 | ER ---
Nurse's Notes [facility] Name: Mago Damico Age: 24 yrs Sex: Female : 1995 Arrival Date: 03/03/2020 Time: 17:41 Bed 5 Private MD: Diagnosis: Dehydration;Orthostatic hypotension;Syncope and collapse Presentation: 03/03 17:48 Chief complaint: Patient states: syncopal episode 2.5 hours ago. Pt reports she is 10 ss weeks and has not been able to keep anything down, so they went to go out to eat and she became dizzy and passed out. Pt reports she breifly hit the floor and got right up. C/o lower abd cramping and low back pain. Coronavirus screen: Client denies travel out of the [place] in the last 14 days. Ebola Screen: Patient denies exposure to infectious person. Patient denies travel to an Ebola-affected area in the 21 days before illness onset. Initial Sepsis Screen: Does the patient meet any 2 criteria? No. Patient's initial sepsis screen is negative. Does the patient have a suspected source of infection? No. Patient's initial sepsis screen is negative. Risk Assessment: Do you want to hurt yourself or someone else? Patient reports no desire to harm self or others. Onset of symptoms was March 03, 2020. 17:48 Method Of Arrival: Ambulatory 17:48 Acuity: VICKIE 3 ss Triage Assessment: 19:15 General: Appears in no apparent distress. comfortable, Behavior is calm, cooperative. mg2 Pain: Denies pain. EENT: No deficits noted. Neuro: Level of Consciousness is awake, alert, obeys commands, Oriented to person, place, time, situation. Cardiovascular: Capillary refill < 3 seconds Patient's skin is warm and dry. Respiratory: Airway is patent Respiratory effort is even, unlabored, Respiratory pattern is regular, symmetrical. GI: No signs and/or symptoms were reported involving the gastrointestinal system. : No signs and/or symptoms were reported regarding the genitourinary system. Derm: Skin is intact, is healthy with good turgor, Skin is pink, warm \T\ dry. normal. Musculoskeletal: Circulation, motion, and sensation intact. Capillary refill < 3 seconds. 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 - Social history:: Smoking status: Patient denies any tobacco usage or history of. Screenin:46 Abuse screen: Denies threats or abuse. Denies injuries from another. Nutritional sv screening: No deficits noted. Tuberculosis screening: No symptoms or risk factors identified. 18:24 Fall Risk None identified. sv Assessment: 18:10 General: Appears in no apparent distress. comfortable, well developed, Behavior is sv calm, cooperative, appropriate for age. Neuro: Level of Consciousness is awake, alert, obeys commands, Oriented to person, place, time, situation, Moves all extremities. Full function Gait is steady, Speech is normal, Reports a syncopal episode. Respiratory: Airway is patent Respiratory effort is even, unlabored, Respiratory pattern is regular, symmetrical. : Denies vaginal bleeding. Derm: Skin is pink, warm \T\ dry. Musculoskeletal: Range of motion: intact in all extremities. 19:46 Reassessment: Patient appears in no apparent distress at this time. Patient and/or mg2 family updated on plan of care and expected duration. Pain level reassessed. Patient is alert, oriented x 3, equal unlabored respirations, skin warm/dry/pink. Patient states feeling better. Vital Signs: 17:48 BP 99 / 51; Pulse 86; Resp 14; Temp 98.1(TE); Pulse Ox 100% on R/A; Weight 67.59 kg; Height 5 ft. 3 in. (160.02 cm); Pain 5/10; 18:10 BP 96 / 50 LA Supine (auto/reg); Pulse 71; sv 18:12 BP 102 / 50 LA Sitting (auto/reg); Pulse 80; sv 18:14 BP 91 / 55 LA Standing (auto/reg); Pulse 107; sv 19:15 BP 104 / 55; Pulse 79; Resp 18; Pulse Ox 100% on R/A; Pain 0/10; mg2 17:48 Body Mass Index 26.39 (67.59 kg, 160.02 cm) ED Course: 17:41 Patient arrived in ED. as 17:42 Scott Saldivar PA is PHCP. jr8 17:42 Shaggy Jernigan MD is Attending Physician. jr8 17:46 Marianela Syeks, RN is Primary Nurse. sv 17:46 Arm band placed on. sv 17:46 Patient has correct armband on for positive identification. Bed in low position. Call sv light in reach. Pulse ox on. NIBP on. 17:50 Triage completed. ss 18:10 Inserted saline lock: 20 gauge in right antecubital area, using aseptic technique. sv ,using aseptic technique. done by Marley DICKSON Blood collected. 18:24 Awaiting lab results. sv 19:07 Primary Nurse role handed off by Marianela Sykes RN sv 19:07 Elias Amador, YESSI is Primary Nurse. mg2 19:15 No provider procedures requiring assistance completed. mg2 19:17 EKG done, by ED staff, reviewed by Scott KENDRICK. sg 19:47 IV discontinued, intact, bleeding controlled, No redness/swelling at site. Pressure mg2 dressing applied. Administered Medications: 18:21 Drug: Ringers - Lactated Ringers Solution 1000 ml Route: IV; Rate: bolus; Site: right sv antecubital; 19:14 Follow up: Response: No adverse reaction; IV Status: Completed infusion; IV Intake: mg2 1000ml Intake: 19:14 IV: 1000ml; Total: 1000ml. mg2 Outcome: 19:34 Discharge ordered by . jr8 19:47 Discharged to home ambulatory. mg2 19:47 Condition: stable 19:47 Discharge instructions given to patient, Instructed on discharge instructions, follow up and referral plans. Demonstrated understanding of instructions, follow-up care. 19:47 Patient left the ED. mg2 Signatures: Marianela Sykes RN RN Donn Cabezas RN RN Yumi Pugh Shelby, RN RN Scott Saldivar PA PA [facility] Elias Amador RN RN mg2 Corrections: (The following items were deleted from the chart) 18:24 18:10 Neuro: Level of Consciousness is awake, alert, obeys commands, Oriented to sv person, place, time, situation, Moves all extremities. Full function Gait is steady, Speech is normal, sv
[2020-03-03 19:54] VITALS: TEMP 98.1; O2SAT 100
[2020-03-03 19:58] VITALS: BP 104/55
--- NOTE | 2020-03-04 10:45 | EKG ---
Test Date: 2020-03-03 Test Time: 19:14:39 Wash Box Operator: SWG MEASUREMENT RESULTS: Intervals: Rate: 79 TN: 146 QRSD: 82 QT: 400 QTc: 458 [place]: P: 30 TN: 146 QRS: 46 T: 22 INTERPRETIVE STATEMENTS: Normal sinus rhythm with sinus arrhythmia Normal ECG Compared to ECG 03/09/2017 11:14:34 No significant changes Electronically Signed On 03-04-20 10:44:21 CDT by Cameron Noel
== END 2020-03-03 19:47 | disposition home or self-care (01) ==
LOC: ER 17:38
DX: O99.281 Endocrine, nutritional and metabolic diseases complicating pregnancy, first trimester (principal); E86.0 Dehydration; O26.51 Maternal hypotension syndrome, first trimester; Z3A.09 9 weeks gestation of pregnancy
CPT/HCPCS: 96365; 93005; 85025; 80048; 36415; 81025; 81003; 99284; J7120

== ENCOUNTER 2020-03-24 13:43 | Emergency (ER) | payer OTHER ==
--- OUTSIDE RECORDS SUMMARY | 2020-03-24 13:48 | XMS REPORT | Continuity of Care Document ---
:1996 Author Organization [facility] t Address [address] [place] [address] Care Team Providers Name Role Phone Brad Izaguirre MD Attending Clinician Juan Moran Attending Clinician Ultrasound Attending Clinician Unavailable Doctor Unassigned, Name Attending Clinician Unavailable Problems This patient has no known problems. Allergies, Adverse Reactions, Alerts This patient has no known allergies or adverse reactions. Medications This patient has no known medications. Procedures This patient has no known procedures. Encounters Start End Encounter Admission Attending Care Care Encounter Source Date/Time Date/Time Type Type Clinicians Facility Department ID 2020-03-17 2020-03-17 Telephone Michelle Izaguirre [facility] [id number] 00:00:00 00:00:00 [place] [id number] [place] [id number] Professio [phone] [address] 2020-03-14 2020-03-14 Abstract Gabriele [facility] [id number] 00:00:00 00:00:00 Karenndgerson R CPHT [id number] [facility] 4.2.7.2.686 MATERNAL [id number] & CHILD [address] [place] [address] 2020-03-13 2020-03-13 Ammunition Supervisor Jaime, [facility] [id number] 08:48:12 09:18:12 Visit Nathan-wayne CPHT [id number] [facility] 4.2.7.2.686 MATERNAL [id number] & CHILD [address] [place] [address] 2020-03-12 2020-03-12 Telephone Michelle Izaguirre [id number] 00:00:00 00:00:00 Cam [place] [id number] [place] [id number] Professio [phone] [address] 2020-03-04 2020-03-04 Telephone Michelle Izaguirre [id number] 00:00:00 00:00:00 Cam [place] [id number] [place] [id number] Professio [id number] [address] 2020-03-04 2020-03-04 Telephone Michelle Izaguirre [id number] 00:00:00 00:00:00 Cam [place] [id number] [place] [id number] Professio [phone] [address] 2020-02-27 2020-02-28 Initial Michelle Izaguirre [id number] 10:13:22 09:32:02 Cam [place] [id number] Visit [place] [id number] Professio [id number] [address] 2020-02-27 2020-02-27 Orders Doctor GUS [id number] 00:00:00 00:00:00 Only Unassigned, SAIDA [id number] [place] [facility] [id number] 009 2020-01-28 2020-01-28 Orders Doctor GUS [id number] 00:00:00 00:00:00 Only Unassigned, SAIDA [id number] [place] [facility] 4.2.7.2.686 [id number] 009 Results This patient has no known results.
--- OUTSIDE RECORDS SUMMARY | 2020-03-24 13:52 | XMS REPORT | Summary of Care ---
:1996 Author Organization [facility] Address [address] [place] [address] Care Team Providers Name Role Phone Juan Suazo LINDA Primary Care Provider Doctor Unassigned, Name Insurance Hmo Unavailable Reason for Visit Reason Comments Assessment Encounter Details Date Type Department Care Team Description 03/04/2020 Telephone [facility] Women's IzaguirreMichelle MD Assessment Healthcare- [address] DRCinthya [address] [address] [address] [place] [address] [place] [address] [phone] Allergies No Known Allergiesdocumented as of this encounter (statuses as of 03/04/2020) Medications Medication Sig Dispensed Refills Start Date End Date Status vit Take 1 Packet by 30 Each 6 02/25/2020 Active 76-qxej-bfpmi-dha mouth daily. (SELECT-OB + DHA) 29 mg iron-1 mg -250 mg combo packIndications: Supervision of high risk in first trimester proMETHazine 25 mg Take 1 tablet by 30 tablet 1 02/25/2020 Active tabletIndications: mouth every 4 Nausea and vomiting in (four) hours as prior to 22 needed for Nausea weeks gestation and Vomiting (N/V). documented as of this encounter (statuses as of 03/04/2020) Active Problems Problem Noted Date Nausea and [...] as of this encounter (statuses as of 03/04/2020) Resolved Problems Problem Noted Date Resolved Date Depo-Provera contraceptive status 04/12/20172018 Cervical high risk human papillomavirus (HPV) DNA test 04/1201/28/2020 positive documented as of this encounter (statuses as of 03/04/2020) Immunizations Name Administration Dates Next Due Influenza [...] this encounter Miscellaneous Notes Telephone Encounter - Marley Mcclellan RN - 03/04/2020 10:32 AM CDTRN spoke with patient, name and verified. Patient states that she was at a restaurant yesterday at 3-4pm and she had waited for a table for about 30 minutes, when she stood up to go to her table everything went black and she passed out. Patient states she had been feeling a bit dizzy while waitingfor the table to be ready. After fainting, patient went to [facility] ER (discussed obtaining records) and was told that she was dehydrated, received IV fluids and labs, an US was not performed. Patient states that she has been eating small frequent amounts and keeping water down. Patient states she is feeling better, just wants to know if she needs a f/u with Dr. Izaguirre. Per Dr. Izaguirre, RN advised patient that no f/u is needed until next scheduled appointment (03/26/2020) unless problems persist. RN educated patient on orthostatic hypotension and the need to make slow position changes and the importance of hydration. Patient verbalized understanding and agrees to plan of care. Marley Mcclellan RN 03/04/2020 10:46 AM Telephone Encounter - Gretchen Lazo - 03/04/2020 10:21 AM CDTPatient is returning nurse call. elephone Encounter - Marley Mcclellan RN - 03/04/2020 10:13 AM CDTRN returned patient call, no answer, left message for patient to return call. Marley Mcclellan RN 03/04/2020 10:14 AM Telephone Encounter - Melisa Mcdonald - 03/04/2020 9:59 AM CDTPatient is calling and is 9 weeks pregnat and is stating that she went to the ER last night due to fainting. Patient was told that she was dehydrated and is wanting to know if she is needing to be seenin the office before her next scheduled appointment. 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
--- OUTSIDE RECORDS SUMMARY | 2020-03-24 13:53 | XMS REPORT | Summary of Care ---
:1996 Author Organization [facility] Address [address] [place] [address] Care Team Providers Name Role Phone Juan Suazo MANAGER BEHAVIORAL Primary Care Provider Doctor Unassigned, Name Insurance Hmo Unavailable Encounter Details Date Type Department Care Team Description 01/28/2020 Orders Only [facility] Doctor Unassigned, No 301 [facility] [place] [address] [address] [place] [address] Allergies No Known Allergiesdocumented as of this encounter (statuses as of 03/04/2020) Medications No known medicationsdocumented as of this [...] of this encounter (statuses as of 03/04/2020) Social History Tobacco Use Types Packs/Day Years [...] Date Type Specialty Care Team Description 03/13/2020 Chain Maker Visit Maternal Medicine 03/26/2020 Routine Visit Obstetrics & Joseph, Gisselle, Gynecology [place] [address] [place] [phone] Health Maintenance Due Date Last Done Comments [...] Name Priority Date/Time Associated Diagnosis Comme nts REPORT OF Routine 01/28/2020 12:01 AM CDT documented in this encounter Results Not on filedocumented in this encounter Insurance Payer Benefit Plan / Subscriber ID Effective Dates Phone Addre ss Type Group [facility] MEDICAID OF [id number] 2020-Pres [phone] [address] Medicaid [place] t [id number] [place] [address] documented as of this encounter Advance Directives Name Relationship Healthcare Agent Communication Relationship Gina Damico Mother Health Care Agent [email or web address]
--- OUTSIDE RECORDS SUMMARY | 2020-03-24 13:53 | XMS REPORT | Summary of Care ---
:1996 Author Organization [facility] - Health Address [address] [place] [address] Care Team Providers Name Role Phone Juan Suazo INSPECTOR BALANCE WHEEL MOTION Primary Care Provider Doctor Unassigned, Name Insurance Hmo Unavailable Encounter Details Date Type Department Care Team Description 02/27/2020 Orders Only [facility] Doctor Unassigned, No 301 [facility] [place] [address] [address] [place] [address] Allergies No Known Allergiesdocumented as of this encounter (statuses as of 03/07/2020) Medications Medication Sig Dispensed Refills Start Date End Date Status vit Take 1 Packet by 30 Each 6 02/25/2020 Active 36-ezka-tqrka-dha mouth daily. (SELECT-OB + DHA) 29 mg iron-1 mg -250 mg combo packIndications: Supervision of high risk in first trimester proMETHazine 25 mg Take 1 tablet by 30 tablet 1 02/25/2020 Active tabletIndications: mouth every 4 Nausea and vomiting in (four) hours as prior to 22 needed for Nausea weeks gestation and Vomiting (N/V). documented as of this encounter (statuses as of 03/07/2020) Active Problems Problem Noted Date Nausea and [...] as of this encounter (statuses as of 03/07/2020) Resolved Problems Problem Noted Date Resolved Date Depo-Provera contraceptive status 04/12/20172018 Cervical high risk human papillomavirus (HPV) DNA test 04/1201/28/2020 positive documented as of this encounter (statuses as of 03/07/2020) Immunizations Name Administration Dates Next Due Influenza [...] Date Type Specialty Care Team Description 03/13/2020 Retail Link Analyst Visit Maternal Medicine 03/26/2020 Routine Visit Obstetrics & Gisselle Ruiz, Gynecology DOM [address] [phone] Health Maintenance Due Date Last Done Comments DTaP,Tdap,and Td Vaccines (1 04/20/2020 Pos tponed from - Tdap) 2015 ([place] Guidelines) Depression Screening 05/18/2020 05/18/2019 CHLAMYDIA SCREENING 01/27/2021 01/28/2020, 04/20/2019, 04/20/2019 PAP SMEAR 02/26/2023 02/27/2020, 04/20/2019, 06/21/2017 INFLUENZA VACCINE Completed 02/25/2020 HPV VACCINES Discontinued MENINGOCOCCAL B VACCINES Discontinued PNEUMOCOCCAL 0-64 YEARS Aged Out No longe r eligible based COMBINED SERIES on patient's age to complete this to pic VARICELLA VACCINES Discontinued documented as of this encounter Procedures Procedure Name Priority Date/Time Associated Diagnosis Comme nts 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
--- OUTSIDE RECORDS SUMMARY | 2020-03-24 13:53 | XMS REPORT | Summary of Care ---
:1996 Author Organization 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 (SELECT-OB + DHA) 29 mg iron-1 mg -250 mg combo packIndications: Supervision of high risk in first trimester proMETHazine 25 mg Take 1 tablet by 30 tablet 1 02/25/2020 Active tabletIndications: mouth every 4 Nausea and vomiting in (four) hours as prior to 22 needed for Nausea weeks gestation and Vomiting (N/V). documented as of this encounter (statuses as of 03/13/2020) Active Problems Problem Noted Date Nausea and [...] as of this encounter (statuses as of 03/13/2020) Resolved Problems Problem Noted Date Resolved Date Depo-Provera contraceptive status 04/12/20172018 Cervical high risk human papillomavirus (HPV) DNA test 04/1201/28/2020 positive documented as of this encounter (statuses as of 03/13/2020) Immunizations Name Administration Dates Next Due Influenza [...] Treatment Date Type Specialty Care Team Description 03/26/2020 Routine Obstetrics & Gisselle Ruiz, Visit Gynecology DOM [address] [place] [phone] Health Maintenance Due Date Last Done [...] filedocumented in this encounter Visit Diagnoses Diagnosis Uterine size-date discrepancy in first t rimester Uterine size date discrepancy, antepartu m condition or complication documented in this encounter Insurance Payer Benefit Plan / Subscriber ID Effective Phone Address T ype Group [facility] [id number] 2020-Pres [address] Medic aid HEALTH CHOICE - HEALTH CHOICE ent [id number] 1 MANAGED MEDICAID [place] MED[place] [phone] [id number] documented as of this encounter Advance Directives Name Relationship Healthcare Agent Communication Relationship Gina Damico Mother Health Care Agent [email or web address]
--- OUTSIDE RECORDS SUMMARY | 2020-03-24 13:53 | XMS REPORT | Summary of Care ---
:1996 Author Organization [facility] Address [address] [place] [address] Care Team Providers Name Role Phone Juan Suazo LINDA Primary Care Provider Doctor Unassigned, Name Insurance Hmo Unavailable Reason for Visit Reason Comments Rx Concern/Question Encounter Details Date Type Department Care Team Description 03/12/2020 Telephone [facility] Women's IzaguirreMichelle MD Rx Concern/Question Healthcare- [address] [facility] [address], [address] [place] [address] [place] [address] [phone] Allergies No Known Allergiesdocumented as of this encounter (statuses as of 03/12/2020) Medications Medication Sig Dispensed Refills Start Date End Date Status vit Take 1 Packet by 30 Each 6 02/25/2020 Active 09-tcdz-xwbdn-dha mouth daily. (SELECT-OB + DHA) 29 mg iron-1 mg -250 mg combo packIndications: Supervision of high risk in first trimester proMETHazine 25 mg Take 1 tablet by 30 tablet 1 02/25/2020 Active tabletIndications: mouth every 4 Nausea and vomiting in (four) hours as prior to 22 needed for Nausea weeks gestation and Vomiting (N/V). documented as of this encounter (statuses as of 03/12/2020) Active Problems Problem Noted Date Nausea and [...] as of this encounter (statuses as of 03/12/2020) Resolved Problems Problem Noted Date Resolved Date Depo-Provera contraceptive status 04/12/20172018 Cervical high risk human papillomavirus (HPV) DNA test 04/1201/28/2020 positive documented as of this encounter (statuses as of 03/12/2020) Immunizations Name Administration Dates Next Due Influenza [...] this encounter Miscellaneous Notes Telephone Encounter - Karen Lucero MA - 03/12/2020 1:28 PM CDTCalled patient, name and verified. 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 Patient verbalized understanding. Will schedule lab appointment when kit is picked up. elephone Encounter - Gretchen Lazo - 03/12/2020 11:53 AM CDTPatient is calling and is requesting to know when she is needing to get her genetic testing done, patient stated she was told it would be today but is not sure where she is needing to go, please call patient back in regards to this encounter. documented in this encounter Plan of Treatment Date Type Specialty Care Team Description 03/13/2020 Pricing Actuary Visit Maternal Medicine 03/26/2020 Routine Visit Obstetrics & Gisselle Ruiz, Gynecology DOM [address] [place] [phone] Health Maintenance Due Date Last Done [...] / Subscriber ID Effective Phone Address T e Group Dates [facility] [id number] 2020-Pres [address] Medic aid HEALTH CHOICE - HEALTH CHOICE ent [id number] 1 MANAGED MEDICAID [place], [place] MEDICAID [phone] documented as of this encounter Advance Directives Name Relationship Healthcare Agent Communication Relationship Gina Damico Mother Health Care Agent [email or web address]
--- OUTSIDE RECORDS SUMMARY | 2020-03-24 13:53 | XMS REPORT | Summary of Care ---
:1996 Author Organization [facility] Address [address] [place] [address] Care Team Providers Name Role Phone Juan Suazo Primary Care Provider Doctor Unassigned, Name Insurance Hmo Unavailable Encounter Details Date Type Department Care Team Description 03/14/2020 Abstract [facility]- A Femi Faith, STITCH CLEANER 110[address] [facility] [address] [place] [address]55 [place] [address] [phone] Allergies No Known Allergiesdocumented as of this encounter (statuses as of 03/14/2020) Medications Medication Sig Dispensed Refills Start Date End Date Status vit Take 1 Packet by 30 Each 6 02/25/2020 Active 12-ihca-bupfz-dha mouth daily. (SELECT-OB + DHA) 29 mg iron-1 mg -250 mg combo packIndications: Supervision of high risk in first trimester proMETHazine 25 mg Take 1 tablet by 30 tablet 1 02/25/2020 Active tabletIndications: mouth every 4 Nausea and vomiting in (four) hours as prior to 22 needed for Nausea weeks gestation and Vomiting (N/V). documented as of this encounter (statuses as of 03/14/2020) Active Problems Problem Noted Date Nausea and [...] as of this encounter (statuses as of 03/14/2020) Resolved Problems Problem Noted Date Resolved Date Depo-Provera contraceptive status 04/12/20172018 Cervical high risk human papillomavirus (HPV) DNA test 04/1201/28/2020 positive documented as of this encounter (statuses as of 03/14/2020) Immunizations Name Administration Dates Next Due Influenza [...] Obstetrics & Gisselle Ruiz, Visit Gynecology DOM [address] [place] [phone] Health Maintenance Due Date Last Done [...] ID Effective Phone Address T e Group [facility] [id number] 2020-Pres [address] Medic aid HEALTH CHOICE - HEALTH CHOICE ent [id number] 1 MANAGED MEDICAID [place] [address] documented as of this encounter Advance Directives Name Relationship Healthcare Agent Communication Relationship Gina Damico Mother Health Care Agent [email or web address]
--- OUTSIDE RECORDS SUMMARY | 2020-03-24 13:53 | XMS REPORT | Summary of Care ---
:1996 Author Organization [facility] Address [address] [place] [address] Care Team Providers Name Role Phone Juan Suazo LINDA Primary Care Provider Doctor Unassigned, Name Insurance Hmo Unavailable Reason for Visit Reason Comments Results Encounter Details Date Type Department Care Team Description 03/04/2020 Telephone [facility] Women's IzaguirreMichelle MD Results Healthcare- [address] DRCinthya [address] [address] [address] [place] [address] [place] [address] [phone] Allergies No Known Allergiesdocumented as of this encounter (statuses as of 03/04/2020) Medications Medication Sig Dispensed Refills Start Date End Date Status vit Take 1 Packet by 30 Each 6 02/25/2020 Active 92-sdon-oxexp-dha mouth daily. (SELECT-OB + DHA) 29 mg [...] Encounter - Marley Mcclellan RN - 03/04/2020 10:47 AM CDTSee result note Marley Mcclellan RN 03/04/2020 10:48 AM Telephone Encounter - Melisa Mcdonald - 03/04/2020 9:58 AM CDTPatient is returning a call back regarding her lab results. 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 Visit Maternal Medicine 03/26/2020 Routine Visit Obstetrics & Gisselle Ruiz, Gynecology DOM [address] [place] [phone] Health Maintenance Due Date Last Done Comments [...] Effective Dates Phone Addre ss Type Group [facility] MEDICAID OF [id number] 2020-[facility] [phone] [address] Medicaid [place] t [id number] [place] [address] documented as of this encounter Advance Directives Name Relationship Healthcare Agent Communication Relationship Gina Damico Mother Health Care Agent [email or web address]
--- OUTSIDE RECORDS SUMMARY | 2020-03-24 13:54 | XMS REPORT | Summary of Care ---
:1996 Author Organization [facility] Address [address] [place] [address] Care Team Providers Name Role Phone Juan Suazo LINDA Primary Care Provider Doctor Unassigned, Name Insurance Hmo Unavailable Reason for Visit Reason Comments Assessment Encounter Details Date Type Department Care Team Description 03/17/2020 Telephone [facility] Women's IzaguirreMichelle MD Assessment Healthcare- [address] DRCinthya [address] [address] [address] [place] [address] [place] [address] [phone] Allergies No Known Allergiesdocumented as of this encounter (statuses as of 03/17/2020) Medications Medication Sig Dispensed Refills Start Date End Date Status vit Take 1 Packet by 30 Each 6 02/25/2020 Active 34-fenu-egnff-dha mouth daily. (SELECT-OB + DHA) 29 mg iron-1 mg -250 mg combo packIndications: Supervision of high risk in first trimester proMETHazine 25 mg Take 1 tablet by 30 tablet 1 02/25/2020 Active tabletIndications: mouth every 4 Nausea and vomiting in (four) hours as prior to 22 needed for Nausea weeks gestation and Vomiting (N/V). documented as of this encounter (statuses as of 03/17/2020) Active Problems Problem Noted Date Nausea and [...] as of this encounter (statuses as of 03/17/2020) Resolved Problems Problem Noted Date Resolved Date Depo-Provera contraceptive status 04/12/20172018 Cervical high risk human papillomavirus (HPV) DNA test 04/1201/28/2020 positive documented as of this encounter (statuses as of 03/17/2020) Immunizations Name Administration Dates Next Due Influenza [...] encounter Miscellaneous Notes Telephone Encounter - Marley Mcclellan, RN - 03/17/2020 4:12 PM CDTRN spoke with LOLA Leiva. Marley Mcclellan RN 03/17/2020 4:12 PM Telephone Encounter - Yue Jc - 03/17/2020 2:45 PM CDTCaitlin with [facility] is needing to know patient due date. Please contact Nunu at [phone] signed by Yue Jc at 03/17/2020 2:46 PM CDTdocumented in this encounter Plan of Treatment Date Type Specialty Care Team Description 03/26/2020 Routine Obstetrics & Gisselle Ruiz, Visit Gynecology DOM [address] [place] [phone] Health Maintenance Due Date Last Done [...] Effective Phone Address T ype Group Dates [facility] [id number] 2020-Pres [address] Medic aid HEALTH CHOICE - HEALTH CHOICE ent [id number] 1 MANAGED MEDICAID [place] [id number] documented as of this encounter Advance Directives Name Relationship Healthcare Agent Communication Relationship Gina Damico Mother Health Care Agent [email or web address]
[2020-03-24 15:31] LABS: Urine Blood NEGATIVE (NEG); Urine Glucose NEGATIVE (NEG); Urine Protein NEGATIVE (NEG)
[2020-03-24] MEDS ORDERED: NA CHLORIDE 0.9% 1,000 ML ONE (15:35)
[2020-03-24 15:47] LABS: Absolute Lymphocytes (CBC) 2.4 K/uL (0.7-4.9); Basophils % 0.2 % (0-1.3); Hematocrit 38.3 % (36.0-45.0); Lymphocytes % 23.8 % (15.3-44.8); RBC Red Blood Cell Count 4.38 M/uL (3.86-4.86)
[2020-03-24] MEDS ORDERED: ACETAMINOPHEN 500 MG TAB ONE (15:53)
[2020-03-24] MEDS ORDERED: PROMETHAZINE INJ 25 MG/ML AMP ONE (15:53)
[2020-03-24 16:00] LABS: Urine Bacteria NONE SEEN /HPF (<20); Urine RBC <5 /HPF (NONE SEEN)
[2020-03-24 16:01] LABS: Urine Culture Reflex Order NOT NEEDED
[2020-03-24 16:17] LABS: BUN Blood Urea Nitrogen 4 mg/dL (7-18); Bicarbonate 23 mmol/L (21-32); Glucose Level 80 mg/dL (74-106); HCG, Quantitative 56600 mIU/mL (1-3); Potassium 3.8 mmol/L (3.5-5.1); Sodium Level 136 mmol/L (136-145)
--- NOTE | 2020-03-24 17:10 | RAD REPORT ---
EXAM DESCRIPTION: US - Transvaginal OB - 03/24/2020 4:31 pm CLINICAL HISTORY: Vaginal bleeding;Abd cramping, Preliminary findings provided at the time of the study. COMPARISON: OBSTETRICAL COMPLETE dated 05/06/2015 FINDINGS: Normal shaped intrauterine gestational sac identified. Single gestation is identified. Hea rt rate is 148 BPM. No gross anatomic abnormality seen. Anatomic assessment is limited in the first t rimester. No intrauterine hematoma or mass. [place]-rump length measurement corresponds to 12 week 0 day age. Calculated [place] is 10/06/2020 No adnexal abnormality. No blood or fluid in the cul de sac. IMPRESSION: Single 12 week 0 day IUP with heart rate 148 BPM. Calculated [place] is 10/06/2020. Cervical canal is closed. No intrauterine hematoma or mass.
--- NOTE | 2020-03-24 17:31 | ER ---
Nurse's Notes [facility] Name: Mago Damico Age: 24 yrs Sex: Female : 1995 Arrival Date: 03/24/2020 Time: 13:47 Bed 24 Private MD: Diagnosis: Threatened Presentation: 03/24 13:53 Chief complaint: Patient states: vaginal bleeding x 1 day, is 12 weeks . sv Reports spotting, and vaginal cramping. Coronavirus screen: Client denies travel out of the [place] in the last 14 days. At this time, the client does not indicate any symptoms associated with coronavirus-19. Initial Sepsis Screen: Does the patient meet any 2 criteria? RR > 20 per min. Does the patient have a suspected source of infection? No. Patient's initial sepsis screen is negative. Risk Assessment: Do you want to hurt yourself or someone else? Patient reports no desire to harm self or others. Onset of symptoms was March 23, 2020. 13:53 Method Of Arrival: Ambulatory sv 13:53 Acuity: VICKIE 3 sv 13:54 Ebola Screen: No symptoms or risks identified at this time. sv Triage Assessment: 13:56 General: Appears in no apparent distress. comfortable, well groomed, well developed, sv Behavior is calm, cooperative, appropriate for age. Neuro: Level of Consciousness is awake, alert, obeys commands, Gait is steady. Respiratory: Respiratory effort is even, unlabored. GI: Reports cramping. : Reports vaginal bleeding that is light flow, spotty. 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 - Social history:: Smoking status: Patient denies any tobacco usage or history of. Screenin:43 Abuse screen: Denies threats or abuse. Denies injuries from another. Nutritional hb screening: No deficits noted. Tuberculosis screening: No symptoms or risk factors identified. Fall Risk None identified. Assessment: 15:43 General: Appears in no apparent distress. Behavior is calm, cooperative. Pain: Pain hb currently is 6 out of 10 on a pain scale. Neuro: Level of Consciousness is awake, alert, obeys commands, Oriented to person, place, time, situation. Cardiovascular: Capillary refill < 3 seconds Patient's skin is warm and dry. Respiratory: Respiratory effort is even, unlabored, Respiratory pattern is regular, symmetrical. GI: Reports lower abdominal pain, cramping, nausea. : No signs and/or symptoms were reported regarding the genitourinary system. EENT: No signs and/or symptoms were reported regarding the EENT system. Derm: Skin is pink, warm \T\ dry. Musculoskeletal: No signs and/or symptoms reported regarding the musculoskeletal system. 16:30 Reassessment: Patient appears in no apparent distress at this time. Patient and/or hb family updated on plan of care and expected duration. Pain level reassessed. Patient is alert, oriented x 3, equal unlabored respirations, skin warm/dry/pink. 17:30 Reassessment: Patient appears in no apparent distress at this time. Patient and/or hb family updated on plan of care and expected duration. Pain level reassessed. Patient is alert, oriented x 3, equal unlabored respirations, skin warm/dry/pink. Patient states feeling better. Patient states symptoms have improved. Vital Signs: 13:54 BP 102 / 62; Pulse 99; Resp 16; Temp 98; Pulse Ox 100% ; Weight 66.68 kg; Height 5 ft. sv 3 in. (160.02 cm); 16:30 BP 112 / 66; Pulse 88; Resp 16; Pulse Ox 99% on R/A; Pain 0/10; hb 13:54 Body Mass Index 26.04 (66.68 kg, 160.02 cm) sv ED Course: 13:47 Patient arrived in ED. ds1 13:54 Triage completed. sv 13:54 Arm band placed on. sv 15:13 Jesse Marx NP is PHCP. pm1 15:13 Bradley Rosado MD is Attending Physician. pm1 15:20 Makenna Arias RN is Primary Nurse. hb 15:30 Inserted saline lock: 20 gauge in right antecubital area, using aseptic technique. hb Blood collected. 15:43 Patient has correct armband on for positive identification. Bed in low position. Call hb light in reach. 15:43 Urine --Ancillary (enter results) Sent. hb 15:43 Urine Dipstick--Ancillary (enter results) Sent. hb 15:43 Urine Microscopic Only Sent. hb 16:12 Quantitative Hcg Sent. sv 16:12 Abo/rh Typing Sent. sv 16:12 Basic Metabolic Panel Sent. sv 16:12 CBC with Diff Sent. sv 17:22 US Transvaginal Ob Sent. sv 17:47 No provider procedures requiring assistance completed. IV discontinued, intact, hb bleeding controlled, No redness/swelling at site. Administered Medications: 15:32 Drug: NS 0.9% 1000 ml Route: IV; Rate: 1000 ml; Site: right antecubital; hb 16:30 Follow up: Response: No adverse reaction; IV Status: Completed infusion; IV Intake: hb 1000ml 15:42 Drug: Tylenol 500 mg Route: PO; hb 16:32 Follow up: Response: No adverse reaction hb 15:42 Drug: Phenergan 12.5 mg Route: IVP; Site: right antecubital; hb 16:20 Follow up: Response: No adverse reaction hb Intake: 16:30 IV: 1000ml; Total: 1000ml. hb Outcome: 17:30 Discharge ordered by . pm1 17:47 Discharged to home ambulatory. hb 17:47 Condition: stable 17:47 Discharge instructions given to patient, Instructed on discharge instructions, follow up and referral plans. medication usage, Demonstrated understanding of instructions, follow-up care, medications. 17:48 Patient left the ED. hb Signatures: Marianela Sykes RN RN Julia Cornejo ds1 Jesse Marx, MEMO PROCUREMENT CLERK pm1 Makenna Arias RN RN hb Corrections: (The following items were deleted from the chart) 13:56 13:54 Pulse 99bpm; Resp 16bpm; Pulse Ox 100%; Temp 98F; 66.68 kg; Height 5 ft. 3 in.; sv BMI: 26.0; sv
--- NOTE | 2020-03-24 17:31 | EDPHYS ---
Physician Documentation [facility] Name: Mago Damico Age: 24 yrs Sex: Female : 1995 Arrival Date: 03/24/2020 Time: 13:47 Bed 24 Private MD: ED Physician Bradley Rosado HPI: 03/24 15:26 This 24 yrs old Female presents to ER via Ambulatory with complaints of 12 Wks pm1 Preg- Vag Bleed, Cramping. 15:26 The patient presents with vaginal bleeding that is light. Onset: The symptoms/episode pm1 began/occurred yesterday, and improved this morning. Modifying factors: The symptoms are alleviated by. Associated signs and symptoms: Pertinent positives: cramping, dysuria, Pertinent negatives: fever. Severity of symptoms: in the emergency department the symptoms have improved. The patient is sexually active. The patient has not experienced similar symptoms in the past. The patient has not recently seen a physician. 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 - Social history:: Smoking status: Patient denies any tobacco usage or history of. ROS: 15:26 Positive for urinary symptoms, vaginal bleeding, Negative for vaginal discharge, pm1 vaginal itching. 15:26 Constitutional: Negative for fever, chills, and weight loss, Cardiovascular: Negative for chest pain, palpitations, and edema, Respiratory: Negative for shortness of breath, cough, wheezing, and pleuritic chest pain. 15:26 Back: Negative for injury and pain, MS/Extremity: Negative for injury and deformity, Skin: Negative for injury, rash, and discoloration, Neuro: Negative for headache, weakness, numbness, tingling, and seizure. 15:26 Abdomen/GI: Positive for abdominal cramps, Negative for nausea, vomiting, and diarrhea. Exam: 15:26 Constitutional: This is a well developed, well nourished patient who is awake, alert, pm1 and in no acute distress. Head/Face: Normocephalic, atraumatic. Abdomen/GI: Soft, non-tender, with normal bowel sounds. No distension or tympany. No guarding or rebound. No evidence of tenderness throughout. Back: No spinal tenderness. No costovertebral tenderness. Full range of motion. Skin: Warm, dry with normal turgor. Normal color with no rashes, no lesions, and no evidence of cellulitis. MS/ Extremity: Pulses equal, no cyanosis. Neurovascular intact. Full, normal range of motion. 15:26 Cardiovascular: Exam negative for acute changes, Rate: normal, Rhythm: regular, Pulses: no pulse deficits are appreciated. 15:26 Respiratory: Exam negative for acute changes, respiratory distress, shortness of breath. 15:26 Neuro: Exam negative for acute changes, Orientation: is normal, Motor: moves all fours. Vital Signs: 13:54 BP 102 / 62; Pulse 99; Resp 16; Temp 98; Pulse Ox 100% ; Weight 66.68 kg; Height 5 ft. sv 3 in. (160.02 cm); 16:30 BP 112 / 66; Pulse 88; Resp 16; Pulse Ox 99% on R/A; Pain 0/10; hb 13:54 Body Mass Index 26.04 (66.68 kg, 160.02 cm) sv MDM: 15:14 Patient medically screened. pm1 17:29 Data reviewed: vital signs. Data interpreted: Pulse oximetry: on room air is 100 %. pm1 Interpretation: normal. Counseling: I had a detailed discussion with the patient and/or guardian regarding: the historical points, exam findings, and any diagnostic results supporting the discharge/admit diagnosis, lab results, radiology results, the need for outpatient follow up, an OB/Gyne specialist, to return to the emergency department if symptoms worsen or persist or if there are any questions or concerns that arise at home. 03/24 15:19 Order name: Quantitative Hcg pm1 03/24 15:19 Order name: Abo/rh Typing pm1 03/24 15:19 Order name: Basic Metabolic Panel pm1 03/24 15:19 Order name: CBC with Diff pm1 03/24 15:19 Order name: Urine Microscopic Only pm1 03/24 15:24 Order name: Urine Dipstick--Ancillary (enter results) bd 03/24 15:24 Order name: Urine --Ancillary (enter results) bd 03/24 15:31 Order name: Urine --Ancillary; Complete Time: 15:36 EDMS 03/24 15:31 Order name: Urine Dipstick-Ancillary; Complete Time: 15:36 EDMS 03/24 16:01 Order name: Urine Microscopic Only; Complete Time: 16:15 EDMS 03/24 16:09 Order name: CBC with Automated Diff; Complete Time: 16:15 EDMS 03/24 16:12 Order name: ABO/RH typing; Complete Time: 16:15 EDMS 03/24 16:17 Order name: Basic Metabolic Panel; Complete Time: 16:17 EDMS 03/24 16:17 Order name: HCG, Quantitative; Complete Time: 16:17 EDMS 03/24 15:19 Order name: Urine Test (obtain specimen); Complete Time: 15:21 pm1 03/24 15:19 Order name: IV Saline Lock; Complete Time: 15:43 pm1 03/24 15:19 Order name: Labs collected and sent; Complete Time: 15:43 pm1 03/24 15:19 Order name: NPO; Complete Time: 15:20 pm1 03/24 15:19 Order name: Urine Dipstick-Ancillary (obtain specimen); Complete Time: 15:22 pm1 03/24 15:19 Order name: US Transvaginal Ob pm1 03/24 17:12 Order name: US; Complete Time: 17:28 EDMS Administered Medications: 15:32 Drug: NS 0.9% 1000 ml Route: IV; Rate: 1000 ml; Site: right antecubital; hb 16:30 Follow up: Response: No adverse reaction; IV Status: Completed infusion; IV Intake: hb 1000ml 15:42 Drug: Tylenol 500 mg Route: PO; hb 16:32 Follow up: Response: No adverse reaction hb 15:42 Drug: Phenergan 12.5 mg Route: IVP; Site: right antecubital; hb 16:20 Follow up: Response: No adverse reaction hb Disposition: 03/25 11:12 Co-signature as Attending Physician, Bradley Rosado MD I agree with the assessment and kdr plan of care. Disposition: 03/24/20 17:30 Discharged to Home. Impression: Threatened . - Condition is Stable. - Discharge Instructions: Threatened Miscarriage, Pelvic Rest. - Work release form, Medication Reconciliation Form, Thank You Letter, Antibiotic Education, Prescription Opioid Use form. - Follow up: Emergency Department; When: As needed; Reason: Worsening of condition. Follow up: Private Physician; When: 2 - 3 days; Reason: Recheck today's complaints, Continuance of care, Re-evaluation by your physician. - Problem is new. - Symptoms have improved. Signatures: Dispatcher [employer] EDMarianela Chicas, RN RN Bradley Rosado MD MD [facility] Jesse Marx, MECHANICAL DOOR REPAIRER MECHANICAL DOOR REPAIRER pm1 Makenna Arias RN RN hb Corrections: (The following items were deleted from the chart) 03/24 17:48 17:30 03/24/2020 17:30 Discharged to Home. Impression: Threatened . Condition hb is Stable. Forms are Medication Reconciliation Form, Thank You Letter, Antibiotic Education, Prescription Opioid Use. Follow up: Emergency Department; When: As needed; Reason: Worsening of condition. Follow up: Private Physician; When: 2 - 3 days; Reason: Recheck today's complaints, Continuance of care, Re-evaluation by your physician. Problem is new. Symptoms have improved. pm1
[2020-03-24 20:22] VITALS: TEMP 98
[2020-03-24 20:23] VITALS: BP 112/66; O2SAT 99
== END 2020-03-24 17:48 | disposition home or self-care (01) ==
LOC: ER 13:43
DX: O20.0 Threatened abortion (principal); Z3A.12 12 weeks gestation of pregnancy
CPT/HCPCS: 96361; 85025; 80048; 36415; 86900; 81025; 86901; 84702; 76817; 96374; 99284; J2550; J7030; 81003; 81015

== ENCOUNTER 2020-09-30 04:29 | Inpatient (IN) | payer OTHER ==
[~2020-09-30 04:29] MED LIST: BUTORPHANOL 1 MG/ML INJ IV PRN; METHYLERGONOVINE 0.2MG/ML AMP IM PRN; PENICILLIN 5 MU in NA CHLORIDE 0.9% 100 ML IV ONE; PROMETHAZINE INJ 25 MG/ML AMP IM PRN; Ringers Lactate 1,000 ML IV PRN
--- OUTSIDE RECORDS SUMMARY | 2020-09-30 04:31 | XMS REPORT | Continuity of Care Document ---
:1995 Author Organization [facility] t Address [address] [place] [address] Care Team Providers Name Role Phone Stephane See DO Attending Clinician Brad Izaguirre MD Attending Clinician Juan Moran [...] Date/Time Type Type Clinicians Facility Department ID 2020-08-26 2020-08-26 Patient CARISSA See [id number] 00:00:00 00:00:00 [id number] [facility] [id number] SISSY [id number] [id number] 2020-03-25 2020-03-25 Telephone Michelle Izaguirre [id number] 00:00:00 00:00:00 Brad Shaikh [id number] [place] [id number] Blake [phone] [address] 2020-03-17 2020-03-17 Telephone Michelle Izaguirre [id number] 00:00:00 00:00:00 Cam Sanborn [id number] [place] [id number] Professio [phone] [address] 2020-03-14 2020-03-14 Abstract Suazo, [facility] [id number] 00:00:00 00:00:00 Femi R COMMISSARY PRODUCTION SUPERVISOR [id number] REGIONAL [id number] MATERNAL [id number] & CHILD 107 [facility] 2020-03-13 2020-03-13 Sock Boarder Ultrasound, [facility] [id number] 08:48:12 09:18:12 Visit Ang-m COMMISSARY PRODUCTION SUPERVISOR [id number] REGIONAL [id number] MATERNAL [id number] & CHILD 369 [facility] 2020-03-12 2020-03-12 Telephone Michelle Izaguirre [facility] 1.2.840.114 [id number] 00:00:00 00:00:00 Cam Sanborn [id number] [place] [id number] Professio [phone] [address] 2020-03-12 2020-03-12 Orders Doctor GUS 1.2.840.114 [id number] 00:00:00 00:00:00 Only Unassigned, SA[place] [id number] [place] [facility] [id number] 2020-03-04 2020-03-04 Telephone Michelle Izaguirre [facility] 1.2.840.114 [id number] 00:00:00 00:00:00 Cam [place] [id number] [place] [id number] Professio [phone] [address] 2020-03-04 2020-03-04 Telephone Izaguirre Michelle [facility] 1.2.840.114 [id number] 00:00:00 00:00:00 Cam Sanborn [id number] [place] [id number] Professio [phone] [address] 2020-02-27 2020-02-28 Initial Michelle Izaguirre [facility] [id number] 10:13:22 09:32:02 Cam Neel [id number] Visit [place] [id number] [facility] [phone] [address] 2020-02-27 2020-02-27 Orders Doctor GUS 1.2.840.114 [id number] 00:00:00 00:00:00 Only Unassigned, SAIDA [id number] [place] [facility] [id number] 2020-01-28 2020-01-28 Orders Doctor GUS 1.2.840.114 [id number] 00:00:00 00:00:00 Only UnassignedSAIDA [id number] [place] [facility] [phone] [id number] Results This patient has no known results.
[2020-09-30] MEDS ORDERED: OXYTOCIN/LR 20 UNIT/1,000 ML BAG IV SCH ×2 (05:00→16:00)
[2020-09-30] MEDS ORDERED: Ringers Lactate 1,000 ML IV SCH (05:00)
[2020-09-30 05:36] VITALS: BMI 29.0
[2020-09-30 05:51] LABS: Urine Appearance CLEAR (Clear); Urine Bilirubin NEGATIVE (Negataive); Urine Blood NEGATIVE (Negative); Urine Color YELLOW (Yellow); Urine Glucose NEGATIVE (Negative); Urine Protein NEGATIVE (Negative); Urine Specific Gravity 1.015 (1.005-1.030); Urine Urobilinogen 0.2 mg/dL (0.2-1.0)
[2020-09-30 05:57] LABS: Absolute Lymphocytes (CBC) 2.2 K/uL (0.7-4.9); Basophils % 0.3 % (0-1.3); Hematocrit 33.3 % (36.0-45.0); Lymphocytes % 20.6 % (15.3-44.8); RBC Red Blood Cell Count 3.79 M/uL (3.86-4.86)
[2020-09-30 05:59] LABS: Urine Microscopic Reflex NO UMIC
[2020-09-30] MEDS ORDERED: FENTANYL CITR 100 MCG/2 ML IV ONE (08:56)
[2020-09-30] MEDS ORDERED: 0.2% ROPIVACAINE (200 MG/100 ML) BAG EP ONE (08:56)
[2020-09-30] MEDS ORDERED: ROPIVACAINE HCL 0.2% 20ML AMP EP ONE (08:57)
[2020-09-30] MEDS ORDERED: PENICILLIN 2.5 MU in NA CHLORIDE 0.9% 100 ML IV SCH (09:33)
[2020-09-30] MEDS ORDERED: LIDOCAINE 1% MPF 30 ML VIAL ONE (11:33)
--- NOTE | 2020-09-30 12:11 | PREOPHP ---
Date of Admission: 09/30/2020 History Of Present Illness: Mago Damico is a 25-year-old 3, para 1, 39 weeks and 2 days, for elective induction. Family History: Grandfather with diabetes, otherwise noncontributory. Past Medical History: No history of STDs. Past Surgical History: She had ear surgery in 2015 on the left ear. Social History: She does not smoke. Allergies: NO DRUG ALLERGIES. Physical Examination: HEENT: Clear. Pupils equal, round, and reactive to light and accommodation. Conjunctivae well perf used. No oral, lingual, or buccal lesions. Chest and Lungs: Clear. Heart: Without murmurs, thrills, heaves, or rubs. Breasts: Not examined today, but on previous visits without masses. Abdomen: Term size. Baby is vertex. Cervix is 2.5 to 3 cm, still slightly posterior, 60% effaced, -1 to almost 0 station. Sherif regularly. FHTs normal, reactive at this point. Assessment And Plan: Full labor talk. The patient is anticipating natural childbirth, although she knows she can change her mind if she gets further into the labor. She has positive beta-strep status , has already received her first dose of penicillin. We will get another dose 4 hours from that time. Once she gets to 5 cm, I anticipate more rapid progress. MICHELLE/JULISA Voice ID: [id number]
[2020-09-30] MEDS ORDERED: ACETAMINOPHEN 500 MG TAB PO PRN (15:45)
[2020-09-30] MEDS ORDERED: BISACODYL 10 MG RECTAL SUPP PR PRN (15:45)
[2020-09-30] MEDS ORDERED: Oxycodone HCl/Acetaminophen 1 TAB TAB PO PRN ×2 (15:45)
[2020-09-30] MEDS ORDERED: DIPHENHYDRAMINE 25 MG TAB/CAP PO PRN (15:45)
[2020-09-30] MEDS ORDERED: DOCUSATE NA/SENNA CONC 1 TAB PO PRN (15:45)
--- NOTE | 2020-09-30 16:08 | PN ---
The patient changed her mind and decided to have epidural at 4 cm. She is very numb at this point. She is 5 cm. Baby is straight occiput posterior. She will start doing pelvic rocks. The epidural i s only at 8, so I do not think that is retarding the progress right now, but if she does not show any changes in the cervix in the next hour or so, we may reduce level down to 6 or even 4. Otherwise, s he is starting to have some small decelerations occasionally, but nothing dramatic and [id number] v ariability is still very good. MICHELLE/JULISA Voice ID: [id number] Report ID: [id number]
--- NOTE | 2020-09-30 16:23 | PN ---
The patient has been doing pelvic rocking during her contractions. She is now 6 cm, 70% effaced, and I think the baby is slightly lower, probably about 0 station. Anticipate more rapid progress. MICHELLE/JULISA Voice ID: [id number] Report ID: [id number]
[2020-09-30] MEDS: IBUPROFEN 600 MG TAB PO PRN (19:20)
--- NOTE | 2020-09-30 19:53 | OP ---
Surgeon: Tayo Swanson MD A 25-year-old 3, para 1, at 39 weeks 2 and days, came in for labor induction. This morning, she was 3 cm vertex, -1 station well applied, rupture of membranes, clear fluid. Went into more acti ve labor pattern. During the labor, received 2 doses of penicillin for prophylaxis. At approximatel y 4 cm requested and received epidural anesthesia. Second stage of approximately 15 minutes. Sponta neous vaginal delivery of an estimated 7 pounds male infant, Apgars 9, 10, very small first-degree mu cosal tear on the left labia minora, sutured with 2-0 chromic four running and locked stitches. Schu ltze delivery of the placenta, which was inspected and noted to be intact and normal. 350 cc or less blood loss. Tolerated all procedures well. Rh positive, immune to rubella, COVID negative, strep p ositive. Final Diagnoses: Term intrauterine . Vaginal delivery. Epidural anesthesia. Beta strep p rophylaxis. MICHELLE/JULISA Voice ID: [id number] Report ID: [id number]
[2020-10-01] MEDS: IBUPROFEN 600 MG TAB PO PRN (01:18)
[2020-10-01] MEDS ORDERED: MAGNESIUM HYDROXIDE 8% 30 ML PO ONE (10:37)
[2020-10-01 17:24] VITALS: BP 104/55; TEMP 97.5
[2020-10-01] MEDS ORDERED: Tdap (Diph,Pertuss(Acell),Tet Vac) 0.5 ML SYR IMVAC ONE (18:18)
--- NOTE | 2020-10-01 21:20 | DS ---
Date of Discharge: 10/01/2020 Mago Damico is a 25-year-old 3, para 1, 39 weeks 2 days, delivered a 7 pounds 2 ounces ma le , Apgars 9 and 10 after a very short second stage of 15 minutes or thereabouts, had epidural anesthesia during the labor, sustained a small first-degree laceration on the left side of the intro itus, which required 4 running locked stitches of 2-0 chromic. Schultze delivery of the placenta, wh ich was inspected and noted to be intact. Less than 350 cc blood loss. The patient is Rh positive, negative COVID, immune to rubella, had positive strep screen and was given penicillin prophylaxis dur ing the labor at least 2 doses or possibly 3. afebrile, ambulating and voiding. No compl aints or problems. She will get her Tdap shot before she leaves the hospital. She has no post epidu ral problems. Does not request any analgesics on dismissal. Final Diagnoses: Term intrauterine at 39 weeks 2 days, vaginal delivery, penicillin prophy laxis, epidural anesthesia, Tdap administration. MICHELLE/FANYL Voice ID: [id number] Report ID: [id number]
[2020-10-02 03:28] LABS: RPR (Rapid Plasma Reagin) NON-REACT (NON-REACT)
[2020-10-03 05:09] LABS: HBsAG Nonreactive (Nonreactive)
== END 2020-10-01 18:05 | disposition home or self-care (01) | DRG 807 ==
LOC: 2ND-WC 04:29
PROVIDERS: ADMIT Specialist; ATTEND Specialist
PROC: 10E0XZZ Delivery of Products of Conception, External Approach (ICD-10-PCS; principal; 2020-09-30)
PROC: 0HQ9XZZ Repair Perineum Skin, External Approach (ICD-10-PCS; 2020-09-30)
PROC: 10907ZC Drainage of Amniotic Fluid, Therapeutic from Products of Conception, Via Natural or Artificial Opening (ICD-10-PCS; 2020-09-30)
DX: O99.824 Streptococcus B carrier state complicating childbirth (principal); Z37.0 Single live birth; O70.0 First degree perineal laceration during delivery; Z3A.39 39 weeks gestation of pregnancy; Z20.822 Contact with and (suspected) exposure to COVID-19; Z23 Encounter for immunization
CPT/HCPCS: 36415; 81003; 85025; 86592; 86850; 86900; 86901; 87340; 90471; 90715; J0595; J2210; J2540; J2550; J2590; J2795; J3010; J7120; U0003